=== PATIENT | male | born 1935 | race Caucasian/White ===

== ENCOUNTER → 2016-11-07 | Day surgery (SDC) | payer MEDICARE ==
[~2016-11-07] VITALS: Ht 170.2 cm; Wt 76.5 kg
[~2016-11-07] MED LIST: AMBI5TAB PO; AMLO2.5T PO; AMLO5TAB2 PO; ASPI81CH CHEW; BACITRACIN TOP OINT 15 GM TUBE ONE; BUME1TAB26 PO; BUPIVACAINE HCL PF 0.5% 30 ML VIAL ONE; CALC0.5C6 PO; COLC1CAP3 PO; FE FCAP; GLIP5TAB8 PO; HYDR-3583 PO; ISOS60TA PO; LACTATED RINGER'S 1000 ML INJ 1,000 ML IV SCH; LIDOCAINE HCL 2% 50 ML VIAL ONE; METO10TA PO; METO50TA PO; METOPROLOL TARTRATE 25 MG TAB ONE; NIFE10CA PO; NITR1SUB3 SL; PERI8.6T PO; PROPOFOL 200 MG/20 ML AMP IV ONE; ROSU20 PO; SEVEL800 PO; [UNRECOGNIZED DRUG - OTHER]; ceFAZolin 2 GM PREMIX 50 ML IV SCH
[2016-11-07 14:51] VITALS: BP 125/52; PULSE 108; RESP 16; TEMP 98; O2SAT 97
--- NOTE | 2016-11-07 17:18 | PD.OP ---
Operative Report Preoperative Diagnosis: (1) gangrene right ring finger Postoperative Diagnosis: (1) gangrene right ring finger Procedure: amputation through Proximal interphalangeal joint right ring finger Anesthesia: MAC Surgeon: Devon Curtis Biomedical Analytical Scientist(s): corazon Operation and Findings: gangrene involving right ring finger till the middle/base middle phalanx region Devon Curtis MD Nov 07, 2016 17:18
[2016-11-07 17:35] VITALS: BP 114/64; PULSE 81; RESP 16; TEMP 97.3; O2SAT 100
--- NOTE | 2016-11-08 14:00 | MP ---
cc: DEVON LEVINE MD DATE OF SURGERY: 11/07/2016 PREOPERATIVE DIAGNOSIS Gangrene, right ring finger. POSTOPERATIVE DIAGNOSIS Gangrene, right ring finger. PROCEDURE Amputation through proximal interphalangeal joint, right ring finger. SURGEON Dr. Levine ANESTHESIA [facility] [place]. ESTIMATED BLOOD LOSS Minimal. TOURNIQUET TIME No tourniquet was used. SPECIMEN Specimen was sent to pathology. DISPOSITION To PACU stable. INDICATION The patient is a 81-year-old male with a history of end-stage renal disease, who presented initially with ischemic right ring finger which was initially managed with calcium channel erica and nitro paste. The patient had worsening of symptoms and ended up with gangrene of the right ring finger up to the middle phalanx region. Hence, he was consented for amputation of the right ring finger. The patient was explained the risks and benefits of the procedure including the level of amputation based on intraoperative findings. DETAILS OF PROCEDURE The patient was brought to the operating room. The right upper extremity was thoroughly prepped and draped under MAC anesthesia. A curvilinear incision was marked in a fishmouth pattern on the volar and dorsal aspect at the base of the middle phalanx region as the gangrenous digit was extending up to the middle/base of the middle phalanx. No tourniquet was used. Local anesthesia containing 2% lidocaine and 0.5% Marcaine was injected as a digital block. An incision was then made over the proposed incision site. Initially the dissection was carried out on the volar aspect. Bleeding points were cauterized with the bipolar cautery. The digital nerves were identified and transected proximally. The digital artery was calcified. Not much bleeding from the digital artery was noted. Because of the gangrenous lesion going to the middle and base of the distal phalanx, decision was made to proceed with amputation through the proximal interphalangeal joint. The flexor tendons were identified and was pulled distally and transected proximally. The joint was entered after incising the volar plate. The collateral ligaments were incised over the lateral aspect. A skin incision was then made on the dorsal aspect extending through the extensor tendon and disarticulation was carried out through the proximal interphalangeal joint. Thorough wash was given with normal saline. Initially soft tissue was loosely approximated over the end of the proximal phalanx and the skin and subcutaneous tissue was approximated initially with 4-0 Vicryl interrupted stitches followed by 5-0 nylon in a horizontal mattress interrupted fashion. Had good pinkish color to the flaps. Xeroform and bacitracin dressing was applied. A bulky hand dressing was applied which was held in place by Sof-Rol and bias hand wrap. The patient was recovered and sent to the recovery room in stable condition. He will follow-up in 2-3 days' time for a dressing change. Devon Levine MD SE/QIAN /5:21 PM /1:43 PM MTDAmish
== END | disposition home or self-care (01) ==
LOC: HSDC 13:33
PROVIDERS: ATTEND Surgery Surgery of the Hand
DX: I96 Gangrene, not elsewhere classified (principal); I99.8 Other disorder of circulatory system; I10 Essential (primary) hypertension
CPT/HCPCS: 01830; 26951; 84132; 88305; 88311; J0690; J3010; J7120

== ENCOUNTER 2016-11-10 11:32 | Observation (INO) | payer MEDICARE ==
[~2016-11-10] VITALS: Ht 170.2 cm; Wt 72.0 kg
[2016-11-10] VITALS (8 sets, daily range): BP systolic 82–136; BP diastolic 45–76; PULSE 68–81; RESP 16–20; TEMP 97.4–98.7; O2SAT 92–99
[~2016-11-10 11:32] MED LIST changes: -AMLO2.5T PO; -AMLO5TAB2 PO; -ASPI81CH CHEW; -BACITRACIN TOP OINT 15 GM TUBE ONE; -BUPIVACAINE HCL PF 0.5% 30 ML VIAL ONE; -HYDR-3583 PO; -LACTATED RINGER'S 1000 ML INJ 1,000 ML IV SCH; -LIDOCAINE HCL 2% 50 ML VIAL ONE; -METO10TA PO; -METOPROLOL TARTRATE 25 MG TAB ONE; -PERI8.6T PO; -PROPOFOL 200 MG/20 ML AMP IV ONE; -[UNRECOGNIZED DRUG - OTHER]; -ceFAZolin 2 GM PREMIX 50 ML IV SCH
--- NOTE | 2016-11-10 11:50 | PD ---
HPI Chief Complaint: Injury Time Seen by Provider: 11:44 Travel History International Travel<30 days: No Contact w/Intl Traveler<30days: No Traveled to known affect area: No History of Present Illness HPI 81-year-old male came to the emergency room with his with history of generalized weakness, poor appetite, not drinking enough fluids for past 2 weeks. He had his ring finger office right hand partially amputated 3 days ago. He says he is also been getting pain at the stump of the finger. No history of fever or chills. No history of nausea or vomiting. In triage his blood pressure was 85/52. However once being brought in the room the blood pressure was 135 systolic. Patient has end-stage renal disease and is a peritoneal dialysis patient. He has dialysis done last night. His industrial maintenance instructor is Dr. Dos Santos. Patient is on renal transplant list. He saw the hand surgeon yesterday and had the wound checked. He was told by the hand surgeon that the wound looked good. The is very concerned because he has not been eating or drinking for past 2 weeks and she has mentioned this more than couple times. [facility] Past Medical History Narrative Medical List of his past medical history reviewed from the nursing note. Anemia: Yes Cancer: No Cardiac Catheterization: Yes Cardiovascular Problems: Yes (CABGX4, CARDIAC STENTS X2) High Cholesterol: Yes Chest Pain: Yes Congestive Heart Failure: Yes Coronary Artery Disease: Yes Diabetes: Yes (NIDDM) Diminished Hearing: No Endocrine: Yes Gastrointestinal Disorders: No Genitourinary: No Hepatitis: No Hiatal Hernia: No Hypertension: Yes Immune Disorder: No Musculoskeletal: Yes (GOUT) Neurologic: Yes (NEUROPATHY) Psychiatric: No Reproductive: No Respiratory: Yes (COPD) Immunizations Current: Yes Thyroid Disease: Yes (PARATHYROID DISEASE) Past Surgical History Abdominal Surgery: Yes (CHOLECYSTECTOMY, RIGHT INGUINAL HERNIA REPAIR & UMBILICAL HERNIA REPAIR) AICD: No Body Medical Devices: wires in sternum, PD PORT TO RIGHT ABD, MESH TO ABD, STENTS X2 Cardiac Surgery: Yes (CABG X4) Cholecystectomy: Yes Coronary Artery Bypass Graft: Yes (1992) Coronary Stent: Yes (X3) Ear Surgery: No Endocrine Surgery: No Eye Surgery: No Genitourinary Surgery: No Gynecologic Surgery: No Joint Replacement: No Neurologic Surgery: No (CAROTID SURGERY 2004) Oral Surgery: No Pacemaker: No Thoracic Surgery: No Tonsillectomy: Yes Other Surgery: Yes (hernia) Social History Alcohol Use: No Tobacco Use: No Substance Use: No Allergies-Medications (Allergen,Severity, Reaction): Coded Allergies: Contrast Media (Verified Allergy, Severe, 11/10/16) KIDNEY PRECAUTION Sulfa (Verified Allergy, Intermediate, RASH, 11/10/16) Comments List of her allergies reviewed from the nursing note. Reported Meds & Prescriptions Reported Meds & Active Scripts Active Reported Renvela (Sevelamer Carbonate) 800 Mg Tab 1,600 Mg PO TID Nifedipine 10 Mg Cap 30 Mg PO DAILY Colchicine 0.6 Mg Cap 0.6 Mg PO DAILY Calcitriol 0.5 Mcg Cap 0.5 Mcg PO DAILY Ambien (Zolpidem Tartrate) 5 Mg Tab 5 Mg PO HS PRN Metoprolol Tartrate 50 Mg Tab 50 Mg PO DAILY Crestor (Rosuvastatin Calcium) 20 Mg Tab 20 Mg PO DAILY Nitroglycerin SL (Nitroglycerin) 0.4 Mg Subl 0.4 Mg SL DIRECTED PRN ONE TABLET UNDER THE TONGUE NEEDED FOR CHEST PAIN, MAY REPEAT EVERY FIVE MINUTES FOR A TOTAL OF 3 DOSES OR CALL 911 IF NO RELIEF Isosorbide Mononitrate ER (Isosorbide Mononitrate) 60 Mg Tab 60 Mg PO DAILY Integra (Multi-Vit/Iron-B Comp-Vit C) 62.5-62.5-40-3 mg Cap Glipizide 5 Mg Tab 5 Mg PO DAILY Take 30 minutes before a meal Bumex (Bumetanide) 1 Mg Tab 1 Mg PO DAILY Narrative Medication List of his home medications reviewed from the nursing note. Review of Systems Except as stated in HPI: all other systems reviewed are Neg Physical Exam Narrative GENERAL: Awake, alert, moderate distress SKIN: Warm and dry. Pale HEAD: Atraumatic. Normocephalic. EYES: Pupils equal and round. No scleral icterus. No injection or drainage. Pallor. ENT: No nasal bleeding or discharge. Dry mucous membrane. NECK: Trachea midline. No JVD. CARDIOVASCULAR: Regular rate and rhythm. No murmur appreciated. RESPIRATORY: No accessory muscle use. Clear to auscultation. Breath sounds equal bilaterally. GASTROINTESTINAL: Abdomen soft, non-tender, nondistended. Hepatic and splenic margins not palpable. MUSCULOSKELETAL: No obvious deformities. No clubbing. No cyanosis. No edema. Right hand ring finger partial amputation. Stitches intact. The skin is erythematous and warm on both dorsal and volar aspect. No streaking noticed. NEUROLOGICAL: Awake and alert. No obvious cranial nerve deficits. Motor grossly within normal limits. Normal speech. PSYCHIATRIC: Appropriate mood and affect; insight and judgment normal. Data Data Last Documented VS Vital Signs Date Time Temp Pulse Resp B/P Pulse Ox O2 Delivery O2 Flow Rate FiO2 11/10/16 13:20 76 17 136/63 99 Room Air 11/10/16 11:36 98.1 Orders Electrocardiogram (11/10/16 11:55) Complete Blood Count With Diff (11/10/16 11:55) Comprehensive Metabolic Panel (11/10/16 11:55) Lactic Acid Sepsis Protocol (11/10/16 11:55) Blood Culture (11/10/16 11:55) Chest, Single Ap (11/10/16 11:55) Blood Glucose (11/10/16 11:55) Ecg Monitoring (11/10/16 11:55) Iv Access Insert/Monitor (11/10/16 11:55) Oximetry (11/10/16 11:55) Oxygen Administration (11/10/16 11:55) Piperacil-Tazo 4.5 Gm Premix (Zosyn 4.5 (11/10/16 11:55) Vancomycin Inj (Vancomycin Inj) (11/10/16 11:55) Sodium Chlor 0.9% 1000 Ml Inj (Ns 1000 M (11/10/16 11:55) Sodium Chlor 0.9% 1000 Ml Inj (Ns 1000 M (11/10/16 11:55) Sodium Chlor 0.9% 1000 Ml Inj (Ns 1000 M (11/10/16 11:55) Type And Screen (11/10/16 11:55) Troponin I (11/10/16 11:55) Hand, Complete ([id number]) (11/10/16 ) Westergren Sedimentation Rate (11/10/16 11:55) C-Reactive Protein (Crp) (11/10/16 11:55) ^ Dialysis Permit (11/10/16 13:33) ^ Notify Dr: Other (11/10/16 13:33) ^ Dialysis Catheter Care (11/10/16 13:33) ^ Dialysis Dressing SHERMAN.Q2D (11/10/16 13:33) ^ Dialysis Orders (11/10/16 13:33) Heparin Inj (Heparin Inj) (11/10/16 13:45) Sodium Chloride 0.9% Flush (Ns Flush) (11/10/16 13:45) Epoetin Santiago Inj (Epogen Inj) (11/11/16 09:00) Acetamin-Hydrocod 325-5 Mg ([place] 5-325 (11/10/16 13:45) Admit Order (Ed Use Only) (11/10/16 13:58) Labs Laboratory Tests Test 11/10/16 11/10/16 12:00 12:30 White Blood Count 8.0 TH/MM3 Red Blood Count 2.93 MIL/MM3 Hemoglobin 9.2 GM/DL Hematocrit 27.2 % Mean Corpuscular Volume 93.0 FL Mean Corpuscular Hemoglobin 31.3 PG Mean Corpuscular Hemoglobin 33.7 % Concent Red Cell Distribution Width 14.7 % Platelet Count 253 TH/MM3 Mean Platelet Volume 7.3 FL Neutrophils (%) (Auto) 69.4 % Lymphocytes (%) (Auto) 7.1 % Monocytes (%) (Auto) 13.2 % Eosinophils (%) (Auto) 9.6 % Basophils (%) (Auto) 0.7 % Neutrophils # (Auto) 5.5 TH/MM3 Lymphocytes # (Auto) 0.6 TH/MM3 Monocytes # (Auto) 1.1 TH/MM3 Eosinophils # (Auto) 0.8 TH/MM3 Basophils # (Auto) 0.1 TH/MM3 CBC Comment DIFF FINAL Differential Comment Erythrocyte Sedimentation Rate GREATER THAN 140 mm/hr Sodium Level 136 MEQ/L Potassium Level 4.1 MEQ/L Chloride Level 96 MEQ/L Carbon Dioxide Level 25.4 MEQ/L Anion Gap 15 MEQ/L Blood Urea Nitrogen 57 MG/DL Creatinine 10.11 MG/DL Estimat Glomerular Filtration 5 ML/MIN Rate Random Glucose 183 MG/DL Lactic Acid Level 2.9 mmol/L Calcium Level 9.1 MG/DL Total Bilirubin 0.4 MG/DL Aspartate Amino Transf 22 U/L (AST/SGOT) Alanine Aminotransferase 8 U/L (ALT/SGPT) Alkaline Phosphatase 122 U/L Troponin I 0.05 NG/ML C-Reactive Protein 7.21 MG/DL Total Protein 7.1 GM/DL Albumin 2.5 GM/DL Blood Type A POSITIVE Antibody Screen NEGATIVE MDM Medical Decision Making Medical Screen Exam Complete: Yes Emergency Medical Condition: Yes Medical Record Reviewed: Yes Interpretation(s) Twelve-lead EKG was reviewed by me. Normal sinus rhythm, left axis deviation, old inferior and anterior IL, lateral T wave inversions. Heart rate of 73 bpm. Differential Diagnosis Sepsis, cellulitis, electrolyte abnormalities, dehydration Narrative Course 1:53 PM I discussed the case with his hand surgeon Dr. Quinteros. He wanted me to send a picture of the amputated finger which I did. After looking at it. He let me know that the postop wound did not look any different than yesterday. He did not think that it was the source of infection. However patient was given a dose of vancomycin and Zosyn and 2 L of IV fluid bolus initially due to possible sepsis. His sedimentation rate, CRP lactic acid are elevated. I discussed with Dr. Tatum regarding patient's peritoneal dialysis for tonight since I intend to admit this patient at least for overnight observation. He is covering for patient's industrial maintenance instructor Dr. Dos Santos. Patient's hemoglobin is low but does not require transfusion. Patient told me that he gets Epogen shots and his last one was one week ago. I spoke with the hospitalist who has agreed to admit the patient for observation. Patient knows about this plan. He wanted something for the pain. I have ordered 1 tablet of hydrocodone. Critical Care Narrative Aggregate critical care time was 30 minutes. Time to perform other separately billable procedures was not included in the critical care time. My time did not include minutes spent treating any other patients simultaneously or on activities that did not directly contribute to the patient's treatment. The services I provided to this patient were to treat and/or prevent clinically significant deterioration that could result in: Sepsis protocol, I provided critical care services requiring my management, as noted below: Chart data review, documentation time, medication orders and management, vital sign assessments/reviewing monitor data, ordering and reviewing lab tests, ordering and interpreting/reviewing x-rays and diagnostic studies, care of the patient and discussion of the patient with the admitting physicians. Procedures EKG Prior to Arrival: No Physician Communication Physician Communication Dr. Tatum, Dr. Quinteros Diagnosis Primary Impression: Postoperative wound cellulitis Qualified Code: T81.4XXA - Postoperative wound cellulitis, initial encounter Additional Impressions: Dehydration End stage renal disease Dependence on peritoneal dialysis Status post right inguinal herniorrhaphy Lactic acidosis Admitting Information Admitting Physician Requests: Observation Scripts Sennosides-Docusate Sodium (Analia-Colace)8.6-50 Mg Tab1 Tab PO BID PRN ( Constipation) #60 TAB Ref 0 Prov:Aric Gonzalez MD 11/11/16 Metoclopramide 10 Mg Tab10 Mg PO ACHS #30 TAB Ref 3 Prov:Aric Gonzalez MD 11/11/16 Hydrocodone-Acetaminophen 10-325 mg Tab1 Tab PO Q4H PRN (PAIN 1-5) #20 TAB Prov:Aric Gonzalez MD 11/11/16 Liliane Lehman MD Nov 10, 2016 11:50
[2016-11-10] MEDS ORDERED: SODIUM CHLOR 0.9% 1000 ML INJ 400 ML IV ONE (11:55)
[2016-11-10] MEDS ORDERED: SODIUM CHLOR 0.9% 1000 ML INJ 1,000 ML IV ONE ×2 (11:55)
[2016-11-10] MEDS ORDERED: VANCOMYCIN INJ 1,000 MG in SODIUM CHLOR 0.9% 250 ML INJ 250 ML IV STA (11:55)
[2016-11-10] MEDS ORDERED: PIPERACIL-TAZO 4.5 GM PREMIX 100 ML IV STA (11:55)
[2016-11-10 12:29] LABS: AUTOMATED NEUTROPHIL # 5.5 TH/MM3 (1.8-7.7); BASOPHIL # 0.1 TH/MM3 (0-0.2); BASOPHIL % 0.7 % (0.0-2.0); EOSINOPHIL # 0.8 TH/MM3 (0-0.4); EOSINOPHIL % 9.6 % (0.0-4.0); HEMATOCRIT 27.2 % (39.0-51.0); HEMO FLAGS DIFF FINAL; LYMPH % 7.1 % (9.0-44.0); LYMPHOCYTE # 0.6 TH/MM3 (1.0-4.8); MEAN CORPUSCULAR HEMOGLOBIN 31.3 PG (27.0-34.0); MEAN CORPUSCULAR HGB CONC 33.7 % (32.0-36.0); MONO % 13.2 % (0.0-8.0); NEUT % 69.4 % (16.0-70.0); PLATELET COUNT 253 TH/MM3 (150-450); RED BLOOD COUNT 2.93 MIL/MM3 (4.50-5.90); RED CELL DISTRIBUTION WIDTH 14.7 % (11.6-17.2)
--- NOTE | 2016-11-10 12:42 | RADRPT ---
EXAM DATE/TIME: 11/10/2016 12:08 [facility] COMPARISON: No previous studies available for comparison. INDICATIONS : Cough. MEDICAL HISTORY : HTN. Diabetes. Dyslipidemia. Renal failure. PAD. Heart failure. SURGICAL HISTORY : Bypass sx. Right iliac angioplasty. Right Hand 4th digit Amputation. ENCOUNTER: Initial ACUITY: 1 day PAIN SCORE: 0/10 LOCATION: Bilateral chest FINDINGS: A single view of the chest demonstrates there are numerous sternal wires across the chest post CABG. The lungs are clear. No infiltrate or mass. CONCLUSION: The lungs are clear. No infiltrate or mass. New Farr MD on November 10, 2016 at 12:39 Board Certified Radiologist. This report was verified electronically.
[2016-11-10 12:50] LABS: ALKALINE PHOSPHATASE 122 U/L (45-117); TOTAL BILIRUBIN ADULT 0.4 MG/DL (0.2-1.0)
[2016-11-10 12:55] LABS: ALT (GPT) 8 U/L (12-78); ANION GAP 15 MEQ/L (5-15); BICARBONATE 25.4 MEQ/L (21.0-32.0); BLOOD UREA NITROGEN 57 MG/DL (7-18); CHLORIDE 96 MEQ/L (98-107); GLOMERULAR FILTRATION RATE 5 ML/MIN (>89); SODIUM (NA) 136 MEQ/L (136-145)
[2016-11-10 13:02] LABS: AST (GOT) 22 U/L (15-37); POTASSIUM 4.1 MEQ/L (3.5-5.1)
--- NOTE | 2016-11-10 13:10 | RADRPT ---
EXAM DATE/TIME: 11/10/2016 12:10 [facility] COMPARISON: No previous studies available for comparison. INDICATIONS : Right Hand Pain, 4th digit amputation site, worsening pain since operation. MEDICAL HISTORY : HTN. Diabetes. Dyslipidemia. Renal failure. PAD. Heart failure. Right Hand Fractures. SURGICAL HISTORY : Bypass sx. Right iliac angioplasty. Right Hand 4th digit Amputation. ENCOUNTER: Initial ACUITY: 1 day PAIN SCORE: 7/10 LOCATION: Right Hand. FINDINGS: Post op three view right hand demonstrates the fourth finger has been amputated distally. There is a small erosion from the ulnar aspect of the third middle phalangeal bone. Joint spaces are relatively well preserved. There is n acute fracture. CONCLUSION: Previous surgery as above. No acute fracture is seen. New Farr MD on November 10, 2016 at 12:49 Board Certified Radiologist. This report was verified electronically.
[2016-11-10] MEDS ORDERED: SODIUM CHLORIDE 0.9% FLUSH 5 ML FLUSH IVF PRN (13:45)
[2016-11-10] MEDS ORDERED: ACETAMINOPHEN/HYDROcodone 325 MG/5 MG TAB PO ONE (13:45)
[2016-11-10] MEDS ORDERED: HEPARIN SODIUM - IV 10,000 UNITS/10 ML VIAL XX PRN (13:45)
--- NOTE | 2016-11-10 14:05 | HHI.HP ---
HPI [facility] Primary Care Physician Amish Roque Admission Diagnosis sepsis, cellulitis, ESRD, PD dependent, dehydration Diagnoses: (1) Intractable pain (2) Lactic acidosis (3) Gastroparesis diabeticorum Chief Complaint: Intractable pain to right hand s/p partial amputation of right index finger Travel History International Travel<30 Days: No Contact w/Intl Traveler <30 Da: No Traveled to Known Affected Are: No History of Present Illness 81 year-old male with multiple medical comorbidities including CAD, diabetes type 2, end-stage renal disease on peritoneal dialysis, gangrene of the right index finger status post right ring finger partial amputation presented to the ED for evaluation of intractable postsurgical pain despite prescribed current narcotics without any associated fever or chills. Patient was seen by a hand surgeons yesterday 11/09/16 for checkup and it was deemed normal without any evidence of infected wound. Patient also reported occasional episodes nausea and emesis along with decreased appetite over the past few months. There is no report of bladder or bowel dysfunction. Patient has a history of end-stage renal disease on peritoneal dialysis. Initially when patient presented to the ED he had BP of 85/52 which improved to 135 systolic. Otherwise patient denies any GI bleed Review of Systems Other Other 12 systems reviewed and are negative except for the one mentioned in history of present illness Past Family Social History Past Medical History Gangrene of right index finger CAD Hyperlipidemia Hypertension Diabetes mellitus Chronic kidney disease stage IV CHF Past Surgical History Status post right ring finger partial amputation 11/07/16 Tonsillectomy Right carotid enterectomy CABG Cholecystectomy Reported Medications Renvela (Sevelamer Carbonate) 800 Mg Tab 1,600 Mg PO TID Nifedipine 10 Mg Cap 30 Mg PO DAILY Colchicine 0.6 Mg Cap 0.6 Mg PO DAILY Calcitriol 0.5 Mcg Cap 0.5 Mcg PO DAILY Ambien (Zolpidem Tartrate) 5 Mg Tab 5 Mg PO HS PRN Metoprolol Tartrate 50 Mg Tab 50 Mg PO DAILY Crestor (Rosuvastatin Calcium) 20 Mg Tab 20 Mg PO DAILY Nitroglycerin SL (Nitroglycerin) 0.4 Mg Subl 0.4 Mg SL DIRECTED PRN ONE TABLET UNDER THE TONGUE NEEDED FOR CHEST PAIN, MAY REPEAT EVERY FIVE MINUTES FOR A TOTAL OF 3 DOSES OR CALL 911 IF NO RELIEF Isosorbide Mononitrate ER (Isosorbide Mononitrate) 60 Mg Tab 60 Mg PO DAILY Integra (Multi-Vit/Iron-B Comp-Vit C) 62.5-62.5-40-3 mg Cap Glipizide 5 Mg Tab 5 Mg PO DAILY Take 30 minutes before a meal Bumex (Bumetanide) 1 Mg Tab 1 Mg PO DAILY Allergies: Coded Allergies: Contrast Media (Verified Allergy, Severe, 11/10/16) KIDNEY PRECAUTION Sulfa (Verified Allergy, Intermediate, RASH, 11/10/16) Social History Alcohol Use: No Tobacco Use: No Substance Use: No Physical Exam Vital Signs Vital Signs Date Time Temp Pulse Resp B/P Pulse Ox O2 Delivery O2 Flow Rate FiO2 11/10/16 13:20 76 17 136/63 99 Room Air 11/10/16 12:00 98 Room Air 11/10/16 12:00 18 98 Room Air 11/10/16 11:37 80 89/54 11/10/16 11:37 81 16 82/45 11/10/16 11:36 98.1 80 16 82/53 92 Physical Exam GENERAL: This is a well-nourished, well-developed patient, in no apparent distress. SKIN: No rashes, ecchymoses or lesions. Cool and dry. HEAD: Atraumatic. Normocephalic. No temporal or scalp tenderness. EYES: Pupils equal round and reactive. Extraocular motions intact. No scleral icterus. No injection or drainage. ENT: Nose without bleeding, purulent drainage or septal hematoma. Throat without erythema, tonsillar hypertrophy or exudate. Uvula midline. Airway patent. NECK: Trachea midline. No JVD or lymphadenopathy. Supple, nontender, no meningeal signs. CARDIOVASCULAR: Regular rate and rhythm without murmurs, gallops, or rubs. RESPIRATORY: Clear to auscultation. Breath sounds equal bilaterally. No wheezes , rales, or rhonchi. GASTROINTESTINAL: Abdomen soft, non-tender, nondistended. No hepato-splenomegaly , or palpable masses. No guarding. MUSCULOSKELETAL: Extremities without clubbing, cyanosis, or edema. No joint tenderness, effusion, or edema noted. No calf tenderness. Negative Homans sign bilaterally. Dressing over partial amputated right index finger NEUROLOGICAL: Awake and alert. Cranial nerves II through XII intact. Motor and sensory grossly within normal limits. Five out of 5 muscle strength in all muscle groups. Normal speech. Laboratory Laboratory Tests Test 11/10/16 11/10/16 12:00 12:30 White Blood Count 8.0 Red Blood Count 2.93 Hemoglobin 9.2 Hematocrit 27.2 Mean Corpuscular Volume 93.0 Mean Corpuscular Hemoglobin 31.3 Mean Corpuscular Hemoglobin 33.7 Concent Red Cell Distribution Width 14.7 Platelet Count 253 Mean Platelet Volume 7.3 Neutrophils (%) (Auto) 69.4 Lymphocytes (%) (Auto) 7.1 Monocytes (%) (Auto) 13.2 Eosinophils (%) (Auto) 9.6 Basophils (%) (Auto) 0.7 Neutrophils # (Auto) 5.5 Lymphocytes # (Auto) 0.6 Monocytes # (Auto) 1.1 Eosinophils # (Auto) 0.8 Basophils # (Auto) 0.1 CBC Comment DIFF FINAL Differential Comment Erythrocyte Sedimentation Rate GREATER THAN 140 Sodium Level 136 Potassium Level 4.1 Chloride Level 96 Carbon Dioxide Level 25.4 Anion Gap 15 Blood Urea Nitrogen 57 Creatinine 10.11 Estimat Glomerular Filtration 5 Rate Random Glucose 183 Lactic Acid Level 2.9 Calcium Level 9.1 Total Bilirubin 0.4 Aspartate Amino Transf 22 (AST/SGOT) Alanine Aminotransferase 8 (ALT/SGPT) Alkaline Phosphatase 122 Troponin I 0.05 C-Reactive Protein 7.21 Total Protein 7.1 Albumin 2.5 Blood Type A POSITIVE Antibody Screen NEGATIVE Date/Time Procedure Status Source Growth 11/10/16 12:00 Aerobic Blood Culture Received Blood Peripheral Pending 11/10/16 12:00 Anaerobic Blood Culture Received Blood Peripheral Pending Result Diagram: 11/10/16 1200 11/10/16 1200 Assessment and Plan Problem List: (1) Intractable pain ICD Code: R52 Status: Acute (2) Lactic acidosis ICD Code: E87.2 Status: Acute (3) Gastroparesis diabeticorum ICD Code: E11.43 Status: Acute (4) ESRD (end stage renal disease) on dialysis ICD Code: N18.6 Status: Chronic (5) CAD (coronary artery disease) ICD Code: I25.10 Status: Chronic (6) CHF (congestive heart failure) ICD Code: I50.9 Status: Chronic (7) DM (diabetes mellitus) ICD Code: E11.9 Status: Chronic (8) HTN (hypertension) ICD Code: I10 Status: Chronic Assessment and Plan 81-year-old male with 1-Intractable postoperative pain: Patient is status post right ring partial finger amputation 11/07/16; no evidence of infected wound despite elevated ESR. Consider courtesy consultation to hand surgeon. Continue with pain management and adjust accordingly 2-Gastroparesis diabeticorum: Most likely explaining patient's symptoms of nausea with starts renally dose Reglan 3-Intractable nausea and occasional emesis: Treat as in above with gastroparesis diabeticorum.Consult dietary. caloric count. ADA diet with Glucerna 4-Lactic acidosis: Although patient status post right partial finger amputation secondary to gangrene, this does not appear to be associated with any infectious process therefore will Repeat lactic acid 5-End-stage renal disease on PD: Nephrology has been consulted to resume peritoneal dialysis tonight. Resumed Renvela 6-Diabetes type 2: Secondary to end-stage renal disease, will hold oral hypoglycemic agent and start medium sliding scale insulin with fingerstick blood glucose monitoring. Check hemoglobin A1c 7-History of CAD, CHF, gout disease,PAD, other chronic medical conditions: Resume outpatient medications 8-DVT prophylaxis: Bilateral SCDs Code Status Full code Discussed Condition With Patient, ED physician Problem Qualifiers (1) DM (diabetes mellitus): Aric Gonzalez MD Nov 10, 2016 14:05
[2016-11-10 14:18] LABS: LACTIC ACID GHOST NOT REPORTABLE
[2016-11-10] MEDS ORDERED: DEXTROSE 50% IN WATER 50 ML VIAL(D50) IV PUSH PRN (14:45)
[2016-11-10] MEDS ORDERED: NALOXONE HCL 0.4 MG/ML AMP IV PRN (14:45)
[2016-11-10] MEDS ORDERED: GLUCAGON 1 MG/ML VIAL OTHER PRN (14:45)
[2016-11-10] MEDS ORDERED: SODIUM CHLORIDE 0.9% FLUSH 5 ML FLUSH FLUSH PRN (14:45)
[2016-11-10] MEDS ORDERED: ACETAMINOPHEN/HYDROcodone 325 MG/7.5 MG TAB PO PRN (15:00)
[2016-11-10] MEDS ORDERED: ACETAMINOPHEN 325 MG TAB PO PRN ×2 (15:00)
[2016-11-10] MEDS ORDERED: ONDANSETRON HCL 4 MG/2 ML VIAL IVP PRN (15:00)
[2016-11-10] MEDS ORDERED: ACETAMINOPHEN/HYDROcodone 325 MG/5 MG TAB PO PRN (15:00)
--- NOTE | 2016-11-10 15:07 | PD.CONS ---
HPI Service Nephrology Consult Requested By Dr. 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 It appears he is on 2.5% alternating with 1.5% solution. 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 Reported Medications Reported Meds & Active Scripts Active Reported Renvela (Sevelamer Carbonate) 800 Mg Tab 1,600 Mg PO TID Nifedipine 10 Mg Cap 30 Mg PO DAILY Colchicine 0.6 Mg Cap 0.6 Mg PO DAILY Calcitriol 0.5 Mcg Cap 0.5 Mcg PO DAILY Ambien (Zolpidem Tartrate) 5 Mg Tab 5 Mg PO HS PRN Metoprolol Tartrate 50 Mg Tab 50 Mg PO DAILY Crestor (Rosuvastatin Calcium) 20 Mg Tab 20 Mg PO DAILY Nitroglycerin SL (Nitroglycerin) 0.4 Mg Subl 0.4 Mg SL DIRECTED PRN ONE TABLET UNDER THE TONGUE NEEDED FOR CHEST PAIN, MAY REPEAT EVERY FIVE MINUTES FOR A TOTAL OF 3 DOSES OR CALL 911 IF NO RELIEF Isosorbide Mononitrate ER (Isosorbide Mononitrate) 60 Mg Tab 60 Mg PO DAILY Integra (Multi-Vit/Iron-B Comp-Vit C) 62.5-62.5-40-3 mg Cap Glipizide 5 Mg Tab 5 Mg PO DAILY Take 30 minutes before a meal Bumex (Bumetanide) 1 Mg Tab 1 Mg PO DAILY Active Ordered Medications Current Medications Medications (Trade) Dose Ordered Sig/Be Route Start Time Stop Time Status Last Admin (NS Flush) 10 ml UNSCH PRN IVF 11/10/16 13:45 11/10/16 14:25 (Epogen Inj) 20,000 units ONCE SQ 11/11/16 09:00 11/11/16 09:01 (NS Flush) 2 ml UNSCH PRN FLUSH 11/10/16 14:45 (NS Flush) 2 ml BID FLUSH 11/10/16 21:00 (Tylenol) 650 mg Q4H PRN PO 11/10/16 15:00 (Zofran Inj) 4 mg Q6H PRN IVP 11/10/16 15:00 (Tylenol) 650 mg Q6H PRN PO 11/10/16 15:00 (Lueders 5-325 Mg) 1 tab Q4H PRN PO 11/10/16 15:00 (Lueders 7.5-325 Mg) 1 tab Q4H PRN PO 11/10/16 15:00 (Narcan Inj) 0.4 mg UNSCH PRN IV 11/10/16 14:45 (D50w (Vial) Inj) 25 ml UNSCH PRN IV PUSH 11/10/16 14:45 (Glucagon Inj) 1 mg UNSCH PRN OTHER 11/10/16 14:45 (Bumetanide) 1 mg DAILY PO 11/11/16 09:00 (Colchicine) 0.6 mg DAILY PO 11/11/16 09:00 (Glucotrol) 5 mg DAILY PO 11/11/16 09:00 (Imdur) 60 mg DAILY PO 11/11/16 09:00 (Procardia) 30 mg DAILY PO 11/11/16 09:00 (Renvela) 1,600 mg TID PO 11/10/16 18:00 (Lipitor) 40 mg DAILY PO 11/11/16 09:00 (Reglan) 10 mg ACHS PO 11/10/16 16:00 (Ambien) 5 mg HS PRN PO 11/10/16 16:00 Family History Noncontributory Social History Denies smoking or alcohol Physical Exam Vital Signs Vital Signs Date Time Temp Pulse Resp B/P Pulse Ox O2 Delivery O2 Flow Rate FiO2 11/10/16 14:48 17 11/10/16 13:20 76 17 136/63 99 Room Air 11/10/16 12:00 98 Room Air 11/10/16 12:00 18 98 Room Air 11/10/16 11:37 80 89/54 11/10/16 11:37 81 16 82/45 11/10/16 11:36 98.1 80 16 82/53 92 Physical Exam GENERAL: Well-nourished, well-developed patient. SKIN: Warm and dry. HEAD: Normocephalic. EYES: No scleral icterus. No injection or drainage. NECK: Supple, trachea midline. No JVD or lymphadenopathy. CARDIOVASCULAR: Regular rate and rhythm without murmurs, gallops, or rubs. RESPIRATORY: Breath sounds equal bilaterally. No accessory muscle use. GASTROINTESTINAL: Abdomen soft, non-tender, nondistended. EXTREMITIES: No cyanosis, or edema. Right hand has a bandage on the fourth finger amputation site NEUROLOGICAL: Awake, alert, and oriented x 3. Non-focal. Laboratory Laboratory Tests Test 11/10/16 11/10/16 12:00 12:30 White Blood Count 8.0 Red Blood Count 2.93 Hemoglobin 9.2 Hematocrit 27.2 Mean Corpuscular Volume 93.0 Mean Corpuscular Hemoglobin 31.3 Mean Corpuscular Hemoglobin 33.7 Concent Red Cell Distribution Width 14.7 Platelet Count 253 Mean Platelet Volume 7.3 Neutrophils (%) (Auto) 69.4 Lymphocytes (%) (Auto) 7.1 Monocytes (%) (Auto) 13.2 Eosinophils (%) (Auto) 9.6 Basophils (%) (Auto) 0.7 Neutrophils # (Auto) 5.5 Lymphocytes # (Auto) 0.6 Monocytes # (Auto) 1.1 Eosinophils # (Auto) 0.8 Basophils # (Auto) 0.1 CBC Comment DIFF FINAL Differential Comment Erythrocyte Sedimentation Rate GREATER THAN 140 Sodium Level 136 Potassium Level 4.1 Chloride Level 96 Carbon Dioxide Level 25.4 Anion Gap 15 Blood Urea Nitrogen 57 Creatinine 10.11 Estimat Glomerular Filtration 5 Rate Random Glucose 183 Lactic Acid Level 2.9 Calcium Level 9.1 Total Bilirubin 0.4 Aspartate Amino Transf 22 (AST/SGOT) Alanine Aminotransferase 8 (ALT/SGPT) Alkaline Phosphatase 122 Troponin I 0.05 C-Reactive Protein 7.21 Total Protein 7.1 Albumin 2.5 Blood Type A POSITIVE Antibody Screen NEGATIVE Date/Time Procedure Status Source Growth 11/10/16 12:00 Aerobic Blood Culture Received Blood Peripheral Pending 11/10/16 12:00 Anaerobic Blood Culture Received Blood Peripheral Pending Result Diagram: 11/10/16 1200 11/10/16 1200 Assessment and Plan Problem List: (1) ESRD (end stage renal disease) on dialysis Plan: Patient has been admitted and the I will start the peritoneal dialysis orders has been placed. Continue supportive care and we will monitor his stay while in the hospital, patient follows with Dr. Dos Santos As outpatient (2) Peripheral vascular disease Plan: Status post recent deprivation continue to observe (3) DM (diabetes mellitus) Plan: Continue to monitor blood glucose (4) HTN (hypertension) Plan: Monitor blood pressures Problem Qualifiers (1) DM (diabetes mellitus): Mily Poon MD Nov 10, 2016 15:07
[2016-11-10] MEDS: INSULIN ASPART SUPPLEMENTAL SCALE SQ SCH ×2 (15:53→21:00)
[2016-11-10] MEDS: METOCLOPRAMIDE HCL 10 MG TAB PO SCH ×2 (15:59→21:46)
[2016-11-10] MEDS ORDERED: ZOLPIDEM TARTRATE 5 MG TAB PO PRN (16:00)
[2016-11-10] MEDS: SEVELAMER CARBONATE 800 MG TAB PO SCH (18:03)
[2016-11-10] MEDS ORDERED: MORPHINE SULFATE 4 MG/ML INJ IV PUSH PRN (19:45)
[2016-11-10] MEDS: SODIUM CHLORIDE 0.9% FLUSH 5 ML FLUSH FLUSH SCH (21:47)
[2016-11-10] MEDS: ACETAMINOPHEN/HYDROcodone 325 MG/10 MG TAB PO PRN (21:47)
[2016-11-11 03:25] VITALS: BP 144/70; PULSE 81; RESP 20; TEMP 97.8; O2SAT 95
[2016-11-11] MEDS: ACETAMINOPHEN/HYDROcodone 325 MG/10 MG TAB PO PRN ×2 (03:35→09:39)
[2016-11-11 06:19] LABS: AUTOMATED NEUTROPHIL # 4.1 TH/MM3 (1.8-7.7); BASOPHIL # 0.1 TH/MM3 (0-0.2); BASOPHIL % 1.1 % (0.0-2.0); EOSINOPHIL # 0.8 TH/MM3 (0-0.4); EOSINOPHIL % 12.6 % (0.0-4.0); HEMATOCRIT 25.1 % (39.0-51.0); HEMO FLAGS DIFF FINAL; LYMPH % 7.6 % (9.0-44.0); LYMPHOCYTE # 0.5 TH/MM3 (1.0-4.8); MEAN CELL VOLUME 92.4 FL (80.0-100.0); MEAN CORPUSCULAR HEMOGLOBIN 31.4 PG (27.0-34.0); MONO % 12.7 % (0.0-8.0); PLATELET COUNT 227 TH/MM3 (150-450); RED BLOOD COUNT 2.72 MIL/MM3 (4.50-5.90); RED CELL DISTRIBUTION WIDTH 14.4 % (11.6-17.2); WHITE BLOOD COUNT 6.2 TH/MM3 (4.0-11.0)
[2016-11-11] MEDS: INSULIN ASPART SUPPLEMENTAL SCALE SQ SCH (06:46)
[2016-11-11] MEDS: METOCLOPRAMIDE HCL 10 MG TAB PO SCH (06:46)
[2016-11-11 06:52] LABS: ALKALINE PHOSPHATASE 111 U/L (45-117); ALT (GPT) 9 U/L (12-78); ANION GAP 11 MEQ/L (5-15); AST (GOT) 29 U/L (15-37); BICARBONATE 27.7 MEQ/L (21.0-32.0); BLOOD UREA NITROGEN 52 MG/DL (7-18); CHLORIDE 100 MEQ/L (98-107); GLOMERULAR FILTRATION RATE 6 ML/MIN (>89); POTASSIUM 3.4 MEQ/L (3.5-5.1); SODIUM (NA) 139 MEQ/L (136-145); TOTAL BILIRUBIN ADULT 0.4 MG/DL (0.2-1.0)
[2016-11-11 07:14] VITALS: BP 123/60; PULSE 75; RESP 18; TEMP 98; O2SAT 98
[2016-11-11] MEDS ORDERED: POTASSIUM CHLORIDE 25 MEQ EFFERVESCENT TAB PO ONE (07:45)
[2016-11-11] MEDS ORDERED: glipiZIDE 5 MG TAB PO SCH ×2 (08:00→09:00)
--- NOTE | 2016-11-11 08:07 | HHI.PR ---
Subjective Remarks Follow-up intractable postoperative pain/gastroparesis 11/11/16-patient seen and examined, reports eating three-quarter of dinner last night without any nausea or vomiting. Pain to his right hand was controlled all night long. Currently afebrile. States, ready for discharge sometimes today around 10 AM. States, Hand surgery visited last night and dressing change was done to his right hand Objective Vitals Vital Signs Date Time Temp Pulse Resp B/P Pulse Ox O2 Delivery O2 Flow Rate FiO2 11/11/16 07:14 98.0 75 18 123/60 98 11/11/16 03:25 97.8 81 20 144/70 95 11/10/16 23:45 97.4 81 20 115/56 98 11/10/16 19:24 98.6 77 20 119/60 96 11/10/16 16:00 98.7 80 18 101/51 96 11/10/16 15:00 68 18 122/76 99 Room Air 11/10/16 14:48 17 11/10/16 13:20 76 17 136/63 99 Room Air 11/10/16 12:00 98 Room Air 11/10/16 12:00 18 98 Room Air 11/10/16 11:45 68 17 11/10/16 11:37 80 89/54 11/10/16 11:37 81 16 82/45 11/10/16 11:36 98.1 80 16 82/53 92 Result Diagram: 11/11/16 0523 11/11/16 0523 Imaging Last Impressions Chest X-Ray 11/10/16 1155 Signed Impressions: Service Date/Time: Thursday, November 10, 2016 12:08 - CONCLUSION: The lungs are clear. No infiltrate or mass. New Farr MD Hand X-Ray 11/10/16 0000 Signed Impressions: Service Date/Time: Thursday, November 10, 2016 12:10 - CONCLUSION: Previous surgery as above. No acute fracture is seen. New Farr MD Objective Remarks GENERAL: NAD SKIN: Warm and dry. HEAD: Normocephalic. EYES: No scleral icterus. No injection or drainage. NECK: Supple, trachea midline. No JVD or lymphadenopathy. CARDIOVASCULAR: Regular rate and rhythm without murmurs, gallops, or rubs. RESPIRATORY: Breath sounds equal bilaterally. No accessory muscle use. GASTROINTESTINAL: Abdomen soft, non-tender, nondistended. MUSCULOSKELETAL: No cyanosis, or edema. Right hand in dressing BACK: Nontender without obvious deformity. No CVA tenderness. 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 Hand surgeon paid a courtesy visit to patient's last night and changed the dressing to his hand. Continue with pain management and adjust accordingly 2-Gastroparesis diabeticorum: Continue with Reglan 3-Intractable nausea and occasional emesis: Treat as in above with gastroparesis diabeticorum.Consult dietary. caloric count. ADA diet with Glucerna 4-Lactic acidosis: Resolved 5-End-stage renal disease on PD: Nephrology has been consulted and had peritoneal dialysis completed this a.m. Continue Renvela 6-Diabetes type 2: Secondary to end-stage renal disease, Resume oral hypoglycemic agent and continue medium sliding scale insulin with fingerstick blood glucose monitoring. hemoglobin A1c pending 7-History of CAD, CHF, gout disease,PAD, other chronic medical conditions: continue outpatient medications 8-DVT prophylaxis: Bilateral SCDs Discharge Planning Discharge patient to home Condition on discharge: Improved ADA Diet as tolerated Ad Francine activity Rx written:Reglan 10mg Follow-up with primary care physician in 1 week Problem Qualifiers (1) DM (diabetes mellitus): Aric Gonzalez MD Nov 11, 2016 08:07
[2016-11-11] MEDS ORDERED: PERI8.6T PO (08:10)
[2016-11-11] MEDS ORDERED: HYDR-3583 PO (08:10)
[2016-11-11] MEDS ORDERED: METO10TA PO (08:10)
[2016-11-11] MEDS ORDERED: COLCHICINE 0.6 MG TAB PO SCH (09:00)
[2016-11-11] MEDS ORDERED: ISOSORBIDE MONONITRATE 60 MG TAB PO SCH (09:00)
[2016-11-11] MEDS ORDERED: EPOETIN ALFA 20,000 UNITS/ML VIAL SQ SCH (09:00)
[2016-11-11] MEDS ORDERED: ATORVASTATIN 40 MG TAB PO SCH (09:00)
[2016-11-11] MEDS ORDERED: NIFEdipine 10 MG CAP PO SCH (09:00)
[2016-11-11] MEDS ORDERED: BUMETANIDE 1 MG TAB PO SCH (09:00)
[2016-11-11] MEDS: SEVELAMER CARBONATE 800 MG TAB PO SCH (09:01)
[2016-11-11] MEDS: SODIUM CHLORIDE 0.9% FLUSH 5 ML FLUSH FLUSH SCH (09:38)
[2016-11-11] MEDS ORDERED: METOCLOPRAMIDE HCL 10 MG TAB PO SCH (11:00)
[2016-11-11] MEDS ORDERED: PILL SPLITTER OTHER PRN (11:00)
--- NOTE | 2016-11-11 19:42 | EKG ---
Date Performed: 11/10/2016 Time Performed: 12:44:49 PTAGE: 81 years EKG: Sinus rhythm MODERATE T-WAVE ABNORMALITY, CONSIDER LATERAL ISCHEMIA ABNORMAL ECG PREVIOUS TRACING : 11/10/2016 12.43 DOCTOR: Kp Banda Interpretating Date/Time 11/11/2016 19:36:26
== END 2016-11-11 11:13 | disposition home or self-care (01) ==
LOC: NEPE 11:32 → NEDA 13:59 → NEPHCDU 16:39
PROVIDERS: ADMIT Hospitalist; ATTEND Hospitalist
DX: L03.90 Cellulitis, unspecified (principal); T81.4XXA Infection following a procedure, initial encounter; I73.9 Peripheral vascular disease, unspecified; E87.2 Acidosis; I12.0 Hypertensive chronic kidney disease with stage 5 chronic kidney disease or end stage renal disease; N18.6 End stage renal disease; I50.9 Heart failure, unspecified; A41.9 Sepsis, unspecified organism; E86.0 Dehydration; E78.5 Hyperlipidemia, unspecified; E11.43 Type 2 diabetes mellitus with diabetic autonomic (poly)neuropathy; K31.84 Gastroparesis; M10.9 Gout, unspecified; Y83.8 Other surgical procedures as the cause of abnormal reaction of the patient, or of later complication, without mention of misadventure at the time of the procedure; I25.10 Atherosclerotic heart disease of native coronary artery without angina pectoris; E78.00 Pure hypercholesterolemia, unspecified; J44.9 Chronic obstructive pulmonary disease, unspecified; Z76.82 Awaiting organ transplant status; Z95.1 Presence of aortocoronary bypass graft; Z95.5 Presence of coronary angioplasty implant and graft; Z99.2 Dependence on renal dialysis
CPT/HCPCS: 71010; 73130; 80053; 82948; 83605; 84484; 85025; 85652; 86140; 86850; 86900; 86901; 87040; 93005; 96361; 96365; 96368; 97163; 99291; G0257; G0378; G8987; G8988; J2543; J3370; J7030; J7050; 90945; J2270

== ENCOUNTER 2016-11-15 15:19 | Inpatient (IN) | payer MEDICARE ==
[~2016-11-15] VITALS: Ht 170.2 cm; Wt 74.2 kg
[~2016-11-15 15:19] MED LIST changes: +HYDR-3583 PO; +METO10TA PO; +PERI8.6T PO
[2016-11-15] MEDS ORDERED: DEXTROSE 50% IN WATER 50 ML VIAL(D50) IV PUSH PRN (16:00)
[2016-11-15] MEDS ORDERED: GLUCAGON 1 MG/ML VIAL OTHER PRN (16:00)
[2016-11-15 16:30] VITALS: BP 105/51; PULSE 89; RESP 20; TEMP 99.4; O2SAT 93
[2016-11-15] MEDS: INSULIN ASPART SUPPLEMENTAL SCALE SQ SCH ×2 (16:41→21:00)
--- NOTE | 2016-11-15 18:11 | HHI.PR ---
Objective Objective Results - Vital Signs Date Time Temp Pulse Resp B/P Pulse Ox O2 Delivery O2 Flow Rate FiO2 11/15/16 16:30 99.4 89 20 105/51 93 Physical Exam Physical Exam pt is seen & Examined d/w PT & his d/w wilian d/w Dr tapia see orders see H&P will f/u Jamie Beyer MD Nov 15, 2016 18:11
[2016-11-15] MEDS ORDERED: DOCUSATE SODIUM 50 MG/SENNA 8.6 MG TAB PO PRN (18:15)
[2016-11-15 18:52] LABS: AUTOMATED NEUTROPHIL # 5.9 TH/MM3 (1.8-7.7); BASOPHIL # 0.1 TH/MM3 (0-0.2); BASOPHIL % 0.9 % (0.0-2.0); EOSINOPHIL # 0.3 TH/MM3 (0-0.4); EOSINOPHIL % 3.4 % (0.0-4.0); HEMATOCRIT 22.5 % (39.0-51.0); HEMO FLAGS DIFF FINAL; LYMPH % 5.5 % (9.0-44.0); LYMPHOCYTE # 0.4 TH/MM3 (1.0-4.8); MEAN CELL VOLUME 94.1 FL (80.0-100.0); MEAN CORPUSCULAR HEMOGLOBIN 31.8 PG (27.0-34.0); MEAN CORPUSCULAR HGB CONC 33.8 % (32.0-36.0); MONO % 9.7 % (0.0-8.0); NEUT % 80.5 % (16.0-70.0); PLATELET COUNT 189 TH/MM3 (150-450); RED BLOOD COUNT 2.39 MIL/MM3 (4.50-5.90); RED CELL DISTRIBUTION WIDTH 15.2 % (11.6-17.2); WHITE BLOOD COUNT 7.3 TH/MM3 (4.0-11.0)
[2016-11-15 18:56] LABS: INTERNATIONAL NORMALIZED RATIO 1.1 RATIO; PROTHROMBIN TIME - PATIENT 12.3 SEC (9.8-11.6)
[2016-11-15 19:15] LABS: ALKALINE PHOSPHATASE 139 U/L (45-117); ALT (GPT) 11 U/L (12-78); ANION GAP 15 MEQ/L (5-15); AST (GOT) 38 U/L (15-37); BLOOD UREA NITROGEN 59 MG/DL (7-18); CHLORIDE 95 MEQ/L (98-107); GLOMERULAR FILTRATION RATE 6 ML/MIN (>89); POTASSIUM 3.3 MEQ/L (3.5-5.1); SODIUM (NA) 136 MEQ/L (136-145); TOTAL BILIRUBIN ADULT 0.4 MG/DL (0.2-1.0)
[2016-11-15 20:00] VITALS: BP 105/50; PULSE 92; RESP 20; TEMP 99.5; O2SAT 94
[2016-11-15] MEDS: METOCLOPRAMIDE HCL 10 MG TAB PO SCH (21:10)
[2016-11-15] MEDS: ZOLPIDEM TARTRATE 5 MG TAB PO PRN (21:15)
[2016-11-15] MEDS: ACETAMINOPHEN/HYDROcodone 325 MG/10 MG TAB PO PRN (21:18)
[2016-11-16] VITALS (9 sets, daily range): BP systolic 82–126; BP diastolic 40–58; PULSE 64–82; RESP 14–18; TEMP 97.8–99.5; O2SAT 93–95
[2016-11-16] MEDS: METOCLOPRAMIDE HCL 10 MG TAB PO SCH ×4 (05:23→20:35)
[2016-11-16] MEDS: INSULIN ASPART SUPPLEMENTAL SCALE SQ SCH ×4 (05:25→22:12)
[2016-11-16] MEDS: ACETAMINOPHEN/HYDROcodone 325 MG/10 MG TAB PO PRN (05:31)
[2016-11-16] MEDS: COLCHICINE 0.6 MG TAB PO SCH (08:43)
[2016-11-16] MEDS: glipiZIDE 5 MG TAB PO SCH (08:43)
[2016-11-16] MEDS: SEVELAMER CARBONATE 800 MG TAB PO SCH ×4 (08:43→16:56)
[2016-11-16] MEDS: ISOSORBIDE MONONITRATE 60 MG TAB PO SCH (08:43)
[2016-11-16] MEDS: ATORVASTATIN 40 MG TAB PO SCH (08:43)
[2016-11-16] MEDS: METOPROLOL TARTRATE 50 MG TAB PO SCH (08:43)
[2016-11-16] MEDS: CALCITRIOL 0.25 MCG CAP PO SCH (08:43)
[2016-11-16] MEDS ORDERED: NIFEdipine 10 MG CAP PO SCH (09:00)
[2016-11-16] MEDS ORDERED: HEPARIN SODIUM - IV 10,000 UNITS/10 ML VIAL XX PRN (09:30)
[2016-11-16] MEDS ORDERED: SODIUM CHLORIDE 0.9% FLUSH 5 ML FLUSH IVF PRN (09:30)
[2016-11-16] MEDS ORDERED: diphenhydrAMINE HCL 25 MG CAP PO PRN (11:30)
[2016-11-16] MEDS ORDERED: ACETAMINOPHEN 325 MG TAB PO PRN (11:30)
[2016-11-16] MEDS ORDERED: SODIUM CHLOR 0.9% 250 ML INJ 250 ML IV ONE ×2 (11:30→13:30)
--- NOTE | 2016-11-16 14:19 | HHI.PR ---
Subjective History of Present Illness feels weak/ tired No appetite , No more N/V No abd pain BP running low no fever or chills R hand /finger pain is ok left foot is painful offers no other c/o sig other at bedside Vitals/Results Intake & Output 11/15/16 11/15/16 11/16/16 15:00 23:00 07:00 Intake Total 240 ml 240 ml Balance 240 ml 240 ml Intake Oral 240 ml 240 ml IV Total 0 ml 0 ml # Voids 1 0 # Bowel Movements 0 1 Vital Signs Vital Signs Date Time Temp Pulse Resp B/P Pulse Ox O2 Delivery O2 Flow Rate FiO2 11/16/16 12:00 98.1 64 14 82/41 93 98/48 11/16/16 08:00 98.3 70 18 111/52 94 11/16/16 00:00 99.5 82 18 106/53 94 11/15/16 20:00 99.5 92 20 105/50 94 11/15/16 16:30 99.4 89 20 105/51 93 CBC/BMP: 11/15/16 1825 11/15/16 1815 Lab Results Laboratory Tests Test 11/15/16 11/15/16 11/16/16 18:15 18:25 12:40 Prothrombin Time 12.3 SEC Prothromb Time International 1.1 RATIO Ratio Sodium Level 136 MEQ/L Potassium Level 3.3 MEQ/L Chloride Level 95 MEQ/L Carbon Dioxide Level 26.0 MEQ/L Anion Gap 15 MEQ/L Blood Urea Nitrogen 59 MG/DL Creatinine 9.15 MG/DL Estimat Glomerular Filtration 6 ML/MIN Rate Random Glucose 173 MG/DL Calcium Level 8.1 MG/DL Total Bilirubin 0.4 MG/DL Aspartate Amino Transf 38 U/L (AST/SGOT) Alanine Aminotransferase 11 U/L (ALT/SGPT) Alkaline Phosphatase 139 U/L Total Protein 6.6 GM/DL Albumin 2.2 GM/DL White Blood Count 7.3 TH/MM3 Red Blood Count 2.39 MIL/MM3 Hemoglobin 7.6 GM/DL Hematocrit 22.5 % Mean Corpuscular Volume 94.1 FL Mean Corpuscular Hemoglobin 31.8 PG Mean Corpuscular Hemoglobin 33.8 % Concent Red Cell Distribution Width 15.2 % Platelet Count 189 TH/MM3 Mean Platelet Volume 7.4 FL Neutrophils (%) (Auto) 80.5 % Lymphocytes (%) (Auto) 5.5 % Monocytes (%) (Auto) 9.7 % Eosinophils (%) (Auto) 3.4 % Basophils (%) (Auto) 0.9 % Neutrophils # (Auto) 5.9 TH/MM3 Lymphocytes # (Auto) 0.4 TH/MM3 Monocytes # (Auto) 0.7 TH/MM3 Eosinophils # (Auto) 0.3 TH/MM3 Basophils # (Auto) 0.1 TH/MM3 CBC Comment DIFF FINAL Differential Comment Blood Type A POSITIVE Physical Exam General General Appearance: Comfortable, Pale, Malnourished Eyes Eye Exam: Sclera White, Extraocular Movement Intact Ears & Nose Ears & Nose Exam: Nasal Mucosa [place] Throat Throat Exam: Oral Mucosa [place] & Moist Neck Neck Exam: Neck Supple, Trachea Midline Pulmonary Resp Exam: Clear Bilaterally, Breath Sounds Equal Cardiology CV Exam: Regular, Normal Sinus Rhythm Gastrointestinal/Abdomen GI Exam: Soft, Non-Tender, Bowel Sounds Present Musculoskeletal MS Remarks L foot cool to touch , DP pulse not palpable R ring finger amputated / incision is healing Integumentary Skin Exam: Warm, Dry Extremeties Extremities Exam: No Edema Neurologic Neuro Exam: Alert, Awake, Oriented, Speech Clear, Moving All Extremities Psychiatric Psych Exam: Appropriate Responses VTE Prophylaxis VTE Prophylaxis Meds: Heparin PUD Prophylasis PUD Prophylaxis: Protonix Assessment/Plan Assessment/Plan ASSESSMENT Anorexia/weakness /weight loss ?? etiology r/o occult GI pathology r/o occult malignancy r/o ch intestinal ischemia Left lower ext pain 3 to 4 days d/t Ischemia Anemia , acute on ch , likely d/t ESRD s/p recent amputation R rig finger DM HTN HLP CAD s/p CABG w Known Graft occlusive disease TRE s/p R carotid A Endarterectomy ESRD on PD PLAN Hold BP for SBP <105 cautious IV hydration transfuse 1 Unit PRBC check Iron studies check occult stool test obtain GI consult , may need EGD PPI cont reglan encourage po intake add supplement / Nepro \ PD per renal cont ASA/ statin diabetic diet Glipizide accu checks qc & qhs sq heparin d/w PT & her sig other/friend at bedside in detail/answered all of her questions I also called pt's daughter, Giulia, , LM-AM. keep Left foot warm apply inch Nitropaste Left foot Dr tapia aware of this patient am labs will f/u Anwer,Muhammed N MD Nov 16, 2016 14:19
[2016-11-16] MEDS: SODIUM CHLOR 0.9% 1000 ML INJ 1,000 ML IV SCH (14:27)
[2016-11-16] MEDS: NITROGLYCERIN 2% OINT 1 GM PACKET TOPICAL SCH ×2 (15:20→16:56)
[2016-11-16] MEDS: HEPARIN SODIUM - SQ 10,000 UNITS/ML VIAL SQ SCH ×2 (15:24→20:35)
[2016-11-16] MEDS ORDERED: POTASSIUM CL 40 MEQ/30 ML LIQ UDC PO ONE (15:30)
[2016-11-16 15:48] LABS: REVIEW FLAG FINAL
[2016-11-16 17:26] LABS: FERRITIN 1023 NG/ML (26-388); TRANSFERRIN IRON PROFILE 146 MG/DL (200-360)
--- NOTE | 2016-11-16 19:56 | MB ---
cc: BASILIA BILLY MD DATE OF CONSULTATION: 11/16/2016. REASON FOR CONSULTATION: End-stage renal disease management. HISTORY OF PRESENT ILLNESS: This is a 81-year-old male with a history of end-stage renal disease. He is on peritoneal dialysis and is followed up as an outpatient with Dr. Dos Santos. The patient follows up with Dr. Murphy for his vascular issues. He had a recent left ring finger amputation on November 07. The patient was following up apparently with Dr. Murphy yesterday and the patient reports he was sent for admission due to worsening toe ischemia at his left toe. The patient was admitted here and his medications are being continued. Apparently the plan is for an arteriogram and possible intervention with Dr. Murphy to be performed on Friday. At this time, the patient is resting comfortably in bed with no apparent distress. Peritoneal dialysis was initiated last night. Nephrology was consulted for further evaluation and treatment of peritoneal dialysis. REVIEW OF SYSTEMS: The patient reports having generalized fatigue, decreased appetite. No nausea or vomiting, otherwise. No chest pains. No shortness of breath. No diarrhea. No constipation. No dysuria. The patient has pain at his left great toe. He has ongoing pain in his right hand and fingers with previous ring finger amputation. Otherwise the review of systems is negative. PAST MEDICAL HISTORY: His medical history includes: 1. Peripheral arterial disease. 2. Recent amputation of right ring finger. 3. Anemia. 4. Diabetes. 5. Hypertension. 6. Dyslipidemia. 7. Coronary artery disease status post CABG with apparent graft occlusive disease. 8. Coronary artery stenosis with right carotid endarterectomy in the past. 9. End-stage renal disease on peritoneal dialysis followed by Dr. Dos Santos. FAMILY HISTORY: Noncontributory. SOCIAL HISTORY: No alcohol, tobacco or drug use noted. PHYSICAL EXAMINATION: VITAL SIGNS: At the time of evaluation, temperature 98.1, pulse 64, respiratory rate 14, blood pressure 98/48 with pulse oximetry of 93% on room air. GENERAL: Awake, lethargic and in no apparent distress. HEAD, EYES, EARS, NOSE, THROAT: Neck soft supple. CARDIAC: Regular rate and rhythm. PULMONARY: Lungs clear to auscultation. ABDOMEN: The abdomen is soft, nontender and nondistended. EXTREMITIES: No edema. The patient has right hand bandages with recent right ring finger amputation. Patient with ischemic changes of left great toe with stasis dermatitis changes as well. LABORATORY FINDINGS: White count 7.3, hemoglobin 7.6, hematocrit 22.5 with platelet count 189,000. Sodium 136, potassium 2.3, chloride 95, bicarb 26, BUN 59, creatinine 9.1, glucose of 173. ASSESSMENT AND PLAN: 1. End-stage renal disease. The patient is on peritoneal dialysis apparently with 2.5% solution alternating with 1.5% solution with apparent 3 liter fill and 9 liter total. Peritoneal dialysis was initiated last night and will continue with peritoneal dialysis while the patient is here. We will replace his potassium. His potassium is slightly low at 3.3 and will give p.o. potassium. Otherwise electrolytes and volume status are stable. Continue to closely monitor. 2. Peripheral arterial disease. The patient with signs of ischemic changes to the left greater foot. The patient is to follow with Dr. Murphy here and the plan is for arteriogram with possible intervention. Continue to follow up and continue to monitor. 3. Anemia. Patient with a hemoglobin of 7.6. He likely has anemia due to chronic kidney disease. The plan is for a transfusion. Continue to monitor hemoglobin and continue to follow. 4. Left ring finger amputation. The patient's previous left ring finger amputation on November 07 his wounds are apparently clean. Continue to monitor at this point and follow up with surgery. 5. Diabetes. Glucose is stable at 173. Continue to monitor. 6. Hypertension. The patient's blood pressure is actually borderline low. Continue to monitor at this point and hold blood pressure medications for systolic less than 100. MD CAROLYNE Betancourt/THEA /3:23 PM /7:38 PM PATY
--- NOTE | 2016-11-16 23:12 | MB ---
cc: INDER REHMAN MD, HASSAN M.D. ANWER, MUHAMMED N. MD DATE OF CONSULTATION 11/16/[address] Bebo Rehman REASON FOR CONSULTATION Anemia, weight loss. HISTORY OF PRESENT ILLNESS Mr. Deutsch is a 81-year-old gentleman who has end-stage renal disease, is on peritoneal dialysis, basically presented with ischemic foot. This has been treated. GI service has been consulted for decreased appetite with some weight loss and anemia. He denies any GI bleeding. He reports EGD, colonoscopy about 3 years ago and he says this was a normal exam. His significant other has the procedure reports at home which she will obtain for me. REVIEW OF SYSTEMS The review of systems currently no active bleeding reported. No abdominal pain. PAST MEDICAL HISTORY Gangrene of right index finger. Coronary artery disease, hyperlipidemia, hypertension, diabetes, chronic kidney disease, CHF. PAST SURGICAL HISTORY Status post right finger partial amputation, tonsillectomy, right carotid endarterectomy, CABG, cholecystectomy. MEDICATIONS On admission: 1. Nifedipine. 2. Colchicine. 3. Calcitriol. 4. Ambien. 5. Metoprolol. 6. Crestor. 7. Nitroglycerin. 8. Isosorbide. 9. ____. 10. Glipizide. 11. Bumex. ALLERGIES CONTRAST, SULFA DRUGS. SOCIAL HISTORY No tobacco, no alcohol reported. PHYSICAL EXAMINATION GENERAL: Physical examination reveals a well-nourished, well developed patient in no apparent distress. HEAD AND NECK EXAMINATION: Anicteric sclerae. CHEST: Bilateral air entry with rales. ABDOMEN: Abdomen is soft, nontender. No hepatosplenomegaly. Bowel sounds are present. SHIP CLEANER: Exam is nonfocal. RECTAL: Exam deferred at this time. LABORATORY DATA Labs reveal hemoglobin of 7.6, creatinine 9.1I, iron of 55. IMPRESSION Anemia, anorexia, weight loss. RECOMMENDATIONS Previous endoscopy report is requested from the family. EGD, colonoscopy discussed with him. At this time he is only willing to do an endoscopy. This will be scheduled for Friday. Continue diet as tolerated. Continue to monitor labs. Will follow with you. Thank you for this referral. MD HARRIET Higgins/JULIANNE /6:43 PM /11:00 PM
[2016-11-17] VITALS: BP 130/62; PULSE 78; RESP 20; TEMP 98; O2SAT 97
[2016-11-17] MEDS: ACETAMINOPHEN/HYDROcodone 325 MG/10 MG TAB PO PRN ×5 (00:22→22:27)
[2016-11-17] MEDS: NITROGLYCERIN 2% OINT 1 GM PACKET TOPICAL SCH ×5 (00:22→23:53)
[2016-11-17] MEDS: ZOLPIDEM TARTRATE 5 MG TAB PO PRN ×2 (00:22→22:27)
[2016-11-17] MEDS: HEPARIN SODIUM - SQ 10,000 UNITS/ML VIAL SQ SCH ×3 (05:14→22:28)
[2016-11-17] MEDS: METOCLOPRAMIDE HCL 10 MG TAB PO SCH ×4 (05:14→22:27)
[2016-11-17] MEDS: INSULIN ASPART SUPPLEMENTAL SCALE SQ SCH ×4 (05:17→21:00)
[2016-11-17 05:19] LABS: HEMATOCRIT 28.1 % (39.0-51.0); MEAN CELL VOLUME 88.6 FL (80.0-100.0); MEAN CORPUSCULAR HGB CONC 33.8 % (32.0-36.0); PLATELET COUNT 195 TH/MM3 (150-450); RED BLOOD COUNT 3.18 MIL/MM3 (4.50-5.90); RED CELL DISTRIBUTION WIDTH 18.4 % (11.6-17.2); REVIEW FLAG FINAL; WHITE BLOOD COUNT 8.9 TH/MM3 (4.0-11.0)
[2016-11-17 05:45] LABS: BICARBONATE 26.8 MEQ/L (21.0-32.0); POTASSIUM 3.2 MEQ/L (3.5-5.1)
[2016-11-17 05:47] LABS: HDL CHOLESTEROL 28.8 MG/DL (40.0-60.0)
[2016-11-17 08:00] VITALS: BP 109/57; PULSE 73; RESP 19; TEMP 96.9; O2SAT 95
[2016-11-17] MEDS: METOPROLOL TARTRATE 50 MG TAB PO SCH (09:00)
[2016-11-17] MEDS: CALCITRIOL 0.25 MCG CAP PO SCH (09:21)
[2016-11-17] MEDS: COLCHICINE 0.6 MG TAB PO SCH (09:21)
[2016-11-17] MEDS: ATORVASTATIN 40 MG TAB PO SCH (09:21)
[2016-11-17] MEDS: ISOSORBIDE MONONITRATE 60 MG TAB PO SCH (09:21)
[2016-11-17] MEDS: glipiZIDE 5 MG TAB PO SCH (09:21)
[2016-11-17] MEDS: SEVELAMER CARBONATE 800 MG TAB PO SCH ×3 (09:22→17:44)
[2016-11-17 12:00] VITALS: BP 107/63; PULSE 77; RESP 18; TEMP 97.3; O2SAT 95
[2016-11-17] MEDS: SODIUM CHLOR 0.9% 1000 ML INJ 1,000 ML IV SCH (12:41)
--- NOTE | 2016-11-17 14:14 | HHI.PR ---
Subjective History of Present Illness feels weak/ tiredness slightly improved No appetite , No more N/V No abd pain BP running low day before, but WNL after transfution no fever or chills R hand /finger pain is ok left foot is painful, otherwise no other acute pain offers no other c/o family, daughter at bedside Hospital Day: 2 Subjective Remarks I'm feeling better today. (Rita Yoder) Review of Systems Constitutional Constitutional: Weakness Constitutional Remarks 10 point ROS done with positives listed. Otherwise negative or unremarkable exam. (Rita Yoder) Musculoskeletal MS: Weakness, Discomfort/Pain MS Remarks left toe and lt. foot ischemia. Cool, no pulses. small gauze on with sock. ( Rita Yoder) Integumentary Skin: Wounds Skin Remarks left foot great toe (Rita Yoder) Vitals/Results Intake & Output 11/16/16 11/16/16 11/17/16 15:00 23:00 07:00 Intake Total 730 ml 280 ml 180 ml Output Total 961 ml 150 ml 600 ml Balance -231 ml 130 ml -420 ml Intake Oral 480 ml 280 ml 180 ml IV Total 250 ml Output Urine Total 0 ml 150 ml 600 ml Stool Total 0 ml 0 ml Peritoneal Fluid 961 ml # Bowel Movements 0 Vital Signs Vital Signs Date Time Temp Pulse Resp B/P Pulse Ox O2 Delivery O2 Flow Rate FiO2 11/17/16 12:00 97.3 77 18 107/63 95 11/17/16 08:00 96.9 73 19 109/57 95 11/17/16 01:22 16 11/17/16 00:00 98.0 78 20 130/62 97 11/16/16 20:10 98.8 80 18 126/58 95 11/16/16 20:00 98.8 80 18 126/58 95 11/16/16 17:00 97.8 76 14 94/44 93 11/16/16 16:45 97.8 78 18 97/46 94 11/16/16 16:00 97.8 78 18 97/46 94 11/16/16 14:30 98.9 72 18 93/40 95 (Rita Yoder) CBC/BMP: 11/17/16 0452 11/17/16 0452 Lab Results Laboratory Tests Test 11/16/16 11/17/16 16:00 04:52 Blood Type A POSITIVE Crossmatch Leukocyte-Reduced Red Blood Cells Blood Bank Comment White Blood Count 8.9 TH/MM3 Red Blood Count 3.18 MIL/MM3 Hemoglobin 9.5 GM/DL Hematocrit 28.1 % Mean Corpuscular Volume 88.6 FL Mean Corpuscular Hemoglobin 30.0 PG Mean Corpuscular Hemoglobin 33.8 % Concent Red Cell Distribution Width 18.4 % Platelet Count 195 TH/MM3 Mean Platelet Volume 7.5 FL Sodium Level 137 MEQ/L Potassium Level 3.2 MEQ/L Chloride Level 97 MEQ/L Carbon Dioxide Level 26.8 MEQ/L Anion Gap 13 MEQ/L Blood Urea Nitrogen 53 MG/DL Creatinine 8.18 MG/DL Estimat Glomerular Filtration 6 ML/MIN Rate Random Glucose 119 MG/DL Calcium Level 8.1 MG/DL Triglycerides Level 134 MG/DL Cholesterol Level 69 MG/DL LDL Cholesterol 13 MG/DL HDL Cholesterol 28.8 MG/DL Cholesterol/HDL Ratio 2.39 RATIO Current Medications Active Medications Heparin Sodium (Porcine) (Heparin Inj) 5,000 units Q8HR SQ Last administered on 11/17/16 12:40; Admin Dose 5,000 UNITS; Start 11/16/16 at 14:30 Metoclopramide HCl (Reglan) 5 mg ACHS PO Last administered on 11/17/16 12:38; Admin Dose 5 MG; Start 11/16/16 at 16:00 Nitroglycerin (Nitroglycerin 2% Oint) 1 inch Q6HR TOPICAL Last administered on 12:40; Admin Dose 1 INCH; Start 11/16/16 at 14:30 Potassium Chloride (KCl 40 Meq/30 ml Liq) 40 meq ONCE ONCE PO Last administered on 11/16/16 16:55; Admin Dose 40 MEQ; Start 11/16/16 at 15:30; Stop 11/16/16 at 15:42; Status DC (Rita Yoder) Physical Exam General General Appearance: Comfortable, Pale, Malnourished (Rita Yoder) Eyes Eye Exam: Sclera White, Extraocular Movement Intact (Rita Yoder) Ears & Nose Ears & Nose Exam: Nasal Mucosa [place] (Rita Yoder. RESEARCH SOIL SCIENTIST) Throat Throat Exam: Oral Mucosa [place] & Moist (Rita Yoder. RESEARCH SOIL SCIENTIST) Neck Neck Exam: Neck Supple, Trachea Midline (Rita Yoder M. RESEARCH SOIL SCIENTIST) Pulmonary Resp Exam: Clear Bilaterally, Breath Sounds Equal (Rita Yoder M. RESEARCH SOIL SCIENTIST) Cardiology CV Exam: Regular, Normal Sinus Rhythm (Rita Yoder. RESEARCH SOIL SCIENTIST) Gastrointestinal/Abdomen GI Exam: Soft, Non-Tender, Bowel Sounds Present (Rita Yoder. RESEARCH SOIL SCIENTIST) Integumentary Skin Exam: Warm, Dry (Rita Yoder. RESEARCH SOIL SCIENTIST) Extremeties Extremities Exam: No Edema (Rita Yoder. RESEARCH SOIL SCIENTIST) Neurologic Neuro Exam: Alert, Awake, Oriented, Speech Clear, Moving All Extremities ( Rita Yoder M. RESEARCH SOIL SCIENTIST) Psychiatric Psych Exam: Appropriate Responses (Rita Yoder. RESEARCH SOIL SCIENTIST) VTE Prophylaxis VTE Prophylaxis Meds: Heparin (WaylandRita peoples. RESEARCH SOIL SCIENTIST) PUD Prophylasis PUD Prophylaxis: Protonix (Rita Yoder. RESEARCH SOIL SCIENTIST) Assessment/Plan Assessment/Plan ASSESSMENT Anorexia/weakness /weight loss ?? etiology r/o occult GI pathology r/o occult malignancy r/o ch intestinal ischemia Left lower ext pain 3 to 4 days d/t Ischemia Anemia , acute on ch , likely d/t ESRD s/p recent amputation R rig finger DM HTN HLP CAD s/p CABG w Known Graft occlusive disease TRE s/p R carotid A Endarterectomy ESRD on PD PLAN Hold BP for SBP <105 cautious IV hydration transfuse 1 Unit PRBC check Iron studies check occult stool test obtain GI consult , may need EGD PPI cont reglan encourage po intake add supplement / Nepro \ PD per renal peritoneal dialysis nightly cont ASA/ statin diabetic diet Glipizide accu checks qc & qhs sq heparin d/w PT & her sig other/friend at bedside in detail/answered all of her questions on admission I also called pt's daughterGiulia, , LM-AM. keep Left foot warm apply inch Nitropaste Left foot Dr tapia aware of this patient am labs show HGB 9.5 after transfusion will f/u Discussed Condition with: Patient, Son, Daughter Discussed Condition Comment D/W nurse Latasha, D/W Dr. Beyer Patient seen on his behalf. (Rita Yoder) Assessment/Plan pt is seen & examined d/w PT & his son & daughter at bedside in detail explained them pt's condition/answered all of theuir questions cont supportive care overall prognosis is poor PD per renal will f/u (Jamie Beyer MD) Rita Yoder Nov 17, 2016 14:14 Jamie Beyer MD Nov 17, 2016 14:43
--- NOTE | 2016-11-17 14:20 | HHI.NPPN ---
Subjective Additional Remarks No acute complaints Objective Data Data 11/16/16 11/17/16 19:00 07:00 Intake Total 730 ml 460 ml Output Total 961 ml 750 ml Balance -231 ml -290 ml Intake Oral 480 ml 460 ml IV Total 250 ml Output Urine Total 0 ml 750 ml Stool Total 0 ml Peritoneal Fluid 961 ml # Bowel Movements 0 Vital Signs Date Time Temp Pulse Resp B/P Pulse Ox O2 Delivery O2 Flow Rate FiO2 11/17/16 12:00 97.3 77 18 107/63 95 11/17/16 08:00 96.9 73 19 109/57 95 11/17/16 01:22 16 11/17/16 00:00 98.0 78 20 130/62 97 11/16/16 20:10 98.8 80 18 126/58 95 11/16/16 20:00 98.8 80 18 126/58 95 11/16/16 17:00 97.8 76 14 94/44 93 11/16/16 16:45 97.8 78 18 97/46 94 11/16/16 16:00 97.8 78 18 97/46 94 11/16/16 14:30 98.9 72 18 93/40 95 -: 11/17/16 0452 11/17/16 0452 Physical Exam General Appearance: Comfortable, Pale, Malnourished Eyes Eye Exam: Sclera White, Extraocular Movement Intact Ears & Nose Ears & Nose Exam: Nasal Mucosa [place] Throat Throat Exam: Oral Mucosa [place] & Moist Neck Neck Exam: Neck Supple, Trachea Midline Pulmonary Resp Exam: Clear Bilaterally, Breath Sounds Equal Cardiology CV Exam: Regular, Normal Sinus Rhythm Gastrointestinal/Abdomen GI Exam: Soft, Non-Tender, Bowel Sounds Present Integumentary Skin Exam: Warm, Dry Extremeties Extremities Exam: No Edema Neurologic Neuro Exam: Alert, Awake, Oriented, Speech Clear, Moving All Extremities Psychiatric Psych Exam: Appropriate Responses PUD Prophylasis PUD Prophylaxis: Protonix Assessment/Plan Problem List: (1) ESRD (end stage renal disease) on dialysis Plan: On peritoneal dialysis, follows with Dr. Dos Santos Tolerating PD here, 1.5%/2.5% solution, 770cc output recorded Will replace potassium, continue PD (2) Peripheral vascular disease Plan: The patient with signs of ischemic changes to the left greater foot. The patient is to follow with Dr. Murphy here and the plan is for arteriogram with possible intervention Jaxson (3) gangrene right ring finger Plan: Lleft ring finger amputation on November 07 his wounds are apparently clean. Continue to monitor at this point and follow up with surgery. (4) DM (diabetes mellitus) Plan: glucose stable, continue to monitor (5) HTN (hypertension) Plan: BP stable, continue to monitor (6) Anemia Plan: Transfused yesterday, continue to monitor. (7) Weight loss Plan: Seen with GI, plan for EGD Problem Qualifiers (1) DM (diabetes mellitus): Qualified Code: E13.22 - Other specified diabetes mellitus with chronic kidney disease on chronic dialysis, unspecified manager terminal insulin use status (2) HTN (hypertension): Qualified Code: I10 - Essential hypertension (3) Anemia: Qualified Code: D64.89 - Anemia due to other cause, not classified Wily Childress MD Nov 17, 2016 14:20
[2016-11-17] MEDS: POTASSIUM CHLOR 20 MEQ PREMIX 100 ML IV SCH ×2 (15:35→17:43)
[2016-11-17 16:00] VITALS: BP 115/65; PULSE 77; RESP 18; TEMP 98; O2SAT 95
[2016-11-17 20:00] VITALS: BP 120/66; PULSE 80; RESP 20; TEMP 98.4; O2SAT 96
[2016-11-18] VITALS: BP 120/72; PULSE 78; RESP 20; TEMP 98.6; O2SAT 98
[2016-11-18 06:09] LABS: AUTOMATED NEUTROPHIL # 9.4 TH/MM3 (1.8-7.7); BASOPHIL # 0.1 TH/MM3 (0-0.2); BASOPHIL % 0.5 % (0.0-2.0); EOSINOPHIL # 0.3 TH/MM3 (0-0.4); EOSINOPHIL % 2.5 % (0.0-4.0); HEMATOCRIT 34.2 % (39.0-51.0); HEMO FLAGS DIFF FINAL; LYMPH % 4.3 % (9.0-44.0); LYMPHOCYTE # 0.5 TH/MM3 (1.0-4.8); MEAN CELL VOLUME 89.7 FL (80.0-100.0); MEAN CORPUSCULAR HEMOGLOBIN 29.8 PG (27.0-34.0); MEAN CORPUSCULAR HGB CONC 33.2 % (32.0-36.0); MONO % 9.8 % (0.0-8.0); NEUT % 82.9 % (16.0-70.0); PLATELET COUNT 198 TH/MM3 (150-450); RED BLOOD COUNT 3.81 MIL/MM3 (4.50-5.90); RED CELL DISTRIBUTION WIDTH 18.2 % (11.6-17.2); WHITE BLOOD COUNT 11.3 TH/MM3 (4.0-11.0)
[2016-11-18 06:14] LABS: BICARBONATE 25.2 MEQ/L (21.0-32.0); POTASSIUM 3.7 MEQ/L (3.5-5.1)
[2016-11-18] MEDS: HEPARIN SODIUM - SQ 10,000 UNITS/ML VIAL SQ SCH ×3 (07:00→23:45)
[2016-11-18] MEDS: METOCLOPRAMIDE HCL 10 MG TAB PO SCH ×4 (07:00→21:00)
[2016-11-18] MEDS: NITROGLYCERIN 2% OINT 1 GM PACKET TOPICAL SCH ×3 (07:02→17:40)
[2016-11-18] MEDS: INSULIN ASPART SUPPLEMENTAL SCALE SQ SCH ×4 (07:06→21:20)
[2016-11-18 08:00] VITALS: BP 144/67; PULSE 100; RESP 17; TEMP 98.5; O2SAT 93
--- NOTE | 2016-11-18 09:48 | MH ---
cc: ALANNA BEYER MD DATE OF ADMISSION: 11/15/2016 No travel noted in the past 30 days or less. CHIEF COMPLAINT: Pain in his left lower leg and great toe. ADMISSION DIAGNOSIS: Ischemic left leg / great toe. HISTORY OF PRESENT ILLNESS: This is a pleasant 81-year-old white male who has had multiple medical comorbidities and admissions to the hospital over the past month. The patient was admitted this past Friday and discharged on Friday for sepsis cellulitis end-stage renal disease and dehydration. The patient noted some minor symptoms of numbness and tingling and pain in his left lower leg late Friday night but went to bed and did not think anything else about it. When he woke up Friday, he noted an increased numbness and pain associated with his left foot and left great toe. There is an open wound approximately the size of a quarter on the back of his left great toe. The whole foot and lower leg is cool to touch. Slight mottling noted. The patient experienced increased pain when trying to walk. The patient also has been having struggles with a decreased appetite and some weight loss over the past few months. He is an end-stage renal disease patient and does his own peritoneal dialysis every night around 10:00 to 10:30. The patient also had a partial amputation of his right index finger back in November 07, 2016. The patient was seen by his nurse practitioner on Friday along with followup appointments with his hand surgeon. There was then a vascular visit consulted per the nurse practitioner in which the patient saw today. He was sent over to the hospital for a direct admit from the vascular surgeon's office. The patient states that he takes his medications as prescribed but has not had any of his medications today. The patient does complain of bouts of nausea and some emesis. He denies any headache, denies any chest pain. No diarrhea. No constipation. Bowels have moved in the past 24 hours without any issues. The patient has no associated fevers or chills. He does ambulate with no assistance but as stated above, this has been more difficult over the past few days. The patient was a direct admission. PAST MEDICAL HISTORY: His past medical history includes: 1. End-stage renal disease. 2. Chronic pain. 3. Gastroparesis. 4. Lactic acidosis. 5. 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 6. Coronary artery disease. 7. Hyperlipidemia. 8. Hypertension. 9. Diabetes type 2. 10. Stage IV chronic kidney disease. 11. Congestive heart failure. PAST SURGICAL HISTORY: 1. Partial amputation of the right ring finger healing with sutures. 2. Tonsillectomy. 3. Right carotid endarterectomy. 4. CABG. 5. Cholecystectomy. ALLERGIES: 1. CONTRAST MEDIA. 2. SULFA DRUGS. MEDICATIONS: 1. Renvela 800 milligrams tab p.o. three times a day. 2. Procardia 10 milligrams tab. He takes 30 milligrams p.o. daily. 3. Colchicine 0.6 milligrams p.o. daily. 4. Calcitriol 0.5 micrograms p.o. daily. 5. Ambien 5 milligrams PRN. 6. Lopressor 50 milligrams daily. 7. Crestor 20 milligrams daily. 8. Nitroglycerin sublingual as needed. 9. Isosorbide ER 60 milligrams tab p.o. daily. 10. Vitamins. 11. Glipizide 5 milligrams p.o. daily. 12. Bumex 1 milligram p.o. daily. 13. He also had hydrocodone added on his discharge Friday to use PRN. 14. Reglan 10 milligrams four times a day a.c. added. 15. Analai-Colace added. SOCIAL HISTORY: The patient lives alone but he does have a significant other female friend who assists him as needed. He denies any tobacco use. He quit approximately thirty years ago. No illicit drugs. Rare alcohol use. FAMILY HISTORY: Parkinson's father, mother depression and from trauma. REVIEW OF SYSTEMS: A twelve-point review was completed. He is positive for generalized weakness and fatigue. Positive for weight loss. All other systems are negative. PHYSICAL EXAMINATION: GENERAL: The patient is a slim borderline frail white male resting in the bed alert, oriented x3 attempting to answer questions. He is a fair historian but does get some of his information out of order or mixed up. His significant other is trying to assist with his history. SKIN: Dusky, warm and dry. HEAD, EYES, EARS, NOSE, THROAT: Normocephalic and atraumatic. Pupils equal, round and reactive to light and accommodation. No icterus in his sclerae. No drainage. The mucous membranes are pale-pink. Tongue is dry and midline. NECK: The neck is supple. No jugular venous distention. CARDIOVASCULAR: Heart sounds. Regular rate and rhythm with an occasional irregular beat noted. Systolic murmur grade 3/6 noted at the lower left sternal border. No rubs. No gallops. He has no pedal edema bilaterally. RESPIRATORY: Lungs are clear to auscultation anteriorly and posteriorly. He uses no accessory muscles. His breath sounds are equal bilaterally. GASTROINTESTINAL: Abdomen is flat, soft, nontender, nondistended. MUSCULOSKELETAL: He moves all extremities with purpose. He does have some generalized weakness noted in his left lower leg but he can slightly move his toes on command. There is an obvious open wound that is red in color but not bleeding noted at the posterior aspect of the left great toe. He also has two very small minimal scabbed over areas on his right third and fourth toe. These have been marked. There is no redness or edema. These have been marked to follow for observation. Left foot and lower leg are cool to touch. Right leg is warm to touch. Posterior tibial pulse is felt in the right lower leg; no pulse felt in the left lower leg. NEUROLOGIC: He is awake. He is alert x3. As stated above, not always oriented to situation as far as history, recent history but does know about his current dialysis and care. Motor is grossly normal. He is 5/5 on his upper extremities with strength. Lower extremities are 4/5 on the right and 3/5 on the left. His speech is normal. PSYCHIATRIC: He has appropriate and affect. His judgment seems to be normal. LABS: Pending for now. RADIOLOGY: Pending for now. ASSESSMENT: 1. Ischemic left lower leg / great toe. 2. Diabetes type 2. 3. End-stage renal disease on peritoneal dialysis. 4. Recent history of right index finger partial amputation. 5. Hyperlipidemia. 6. Hypertension. 7. Diabetes mellitus type 2. 8. Congestive heart failure. 9. Coronary artery disease. PLAN: 1. Admit and monitor his labs. 2. Place him on an 1800 calorie ADA diet. 3. Reconcile all of his medications and get doses in him tonight. 4. We have consulted wound care to follow for their expert opinion for both of his lower legs and any other issues warranted. 5. Nephrology consult for the patient's peritoneal dialysis. 6. Vascular surgery consult. 7. Dr. Beyer has spoken to the vascular surgeon and there is going to be hopeful surgery set up for some type of bypass Friday a.m. 8. Will monitor Accu-Cheks and give sliding scale insulin as warranted. The patient is a full code, full aggressive care per his request and we will follow. Dictated by SHANTHI Greene. MD FINA Ash/THEA /6:05 PM /9:46 AM pt is seen & Examined d/w PT & his d/w wilian d/w Dr tapia see orders see H&P will f/u Alanna Beyer MD Nov 15, 2016 18:11 [facility]
[2016-11-18] MEDS: ISOSORBIDE MONONITRATE 60 MG TAB PO SCH (10:07)
[2016-11-18] MEDS: glipiZIDE 5 MG TAB PO SCH (10:07)
[2016-11-18] MEDS: SEVELAMER CARBONATE 800 MG TAB PO SCH ×3 (10:07→17:39)
[2016-11-18] MEDS: COLCHICINE 0.6 MG TAB PO SCH (10:07)
[2016-11-18] MEDS: CALCITRIOL 0.25 MCG CAP PO SCH (10:07)
[2016-11-18] MEDS: METOPROLOL TARTRATE 50 MG TAB PO SCH (10:08)
[2016-11-18] MEDS: ATORVASTATIN 40 MG TAB PO SCH (10:08)
[2016-11-18] MEDS: ACETAMINOPHEN/HYDROcodone 325 MG/10 MG TAB PO PRN (10:25)
[2016-11-18 12:00] VITALS: BP 107/51; PULSE 68; RESP 18; TEMP 97.9; O2SAT 93
[2016-11-18] MEDS ORDERED: PROPOFOL 200 MG/20 ML AMP IV ONE (12:00)
[2016-11-18] MEDS ORDERED: SODIUM CHLOR 0.9% 250 ML INJ 250 ML IV ONE (12:00)
--- NOTE | 2016-11-18 12:15 | HHI.NPPN ---
Subjective Renal Failure: Chronic, End Stage Renal Disease Interval History He continues to do poorly. To have left leg arteriogram today. (Sharmila Dennis) Review of Systems General Constitutional: Fatigue (Sharmila Dennis) Gastrointestinal GI Remarks decreased appetite (Sharmila Dennis) Objective Data Data 11/17/16 11/18/16 19:00 07:00 Intake Total 616 ml 580 ml Output Total 772 ml 0 ml Balance -156 ml 580 ml Intake Oral 240 ml 580 ml IV Total 376 ml Output Urine Total 0 ml 0 ml Peritoneal Fluid 772 ml # Bowel Movements 0 0 Vital Signs Date Time Temp Pulse Resp B/P Pulse Ox O2 Delivery O2 Flow Rate FiO2 11/18/16 08:00 98.5 100 17 144/67 93 11/18/16 00:00 98.6 78 20 120/72 98 11/17/16 20:00 98.4 80 20 120/66 96 11/17/16 19:32 16 11/17/16 16:00 98.0 77 18 115/65 95 (Sharmila Dennis) -: 11/18/16 0508 11/18/16 0508 Microbiology 11/18/16 Stool Occult Blood (MIKE), Received Pending (Sharmila Dennis) Physical Exam General Appearance: No Acute Distress, Comfortable, Pale, Malnourished (Sharmila Dennis) Eyes Eye Exam: Sclera White, Extraocular Movement Intact (Sharmila Dennis) Ears & Nose Ears & Nose Exam: Nasal Mucosa [place] (Sharmila Dennis) Throat Throat Exam: Oral Mucosa [place] & Moist (Sharmila Dennis) Neck Neck Exam: Neck Supple, Trachea Midline (Sharmila Dennis) Pulmonary Resp Exam: Clear Bilaterally, Breath Sounds Equal, No Distress (Sharmila Dennis) Cardiology CV Exam: Regular, Normal Sinus Rhythm (Sharmila Dnenis) Gastrointestinal/Abdomen GI Exam: Soft, Non-Tender, Bowel Sounds Present (Sharmila Dennis) Integumentary Skin Exam: Warm, Dry (Sharmila Dennis) Extremeties Extremities Exam: No Edema Extremeties Remarks right ring finger amputation left great toe necrosis (Sharmila Dennis) Neurologic Neuro Exam: Alert, Awake, Oriented, Speech Clear, Moving All Extremities ( Sharmila Dennis) Psychiatric Psych Exam: Appropriate Responses (Sharmila Dennis) PUD Prophylasis PUD Prophylaxis: Protonix (Sharmila Dennis) Assessment/Plan Assessment Summary: Anemia of CKD, Malnutrition Problem List: (1) ESRD (end stage renal disease) on dialysis Plan: continue nightly PD, Tolerating PD here, 1.5%/2.5% solution, good UF reported K has been replaced he has decreased appetite, will give Marinol and reevaluate high protein diet he is doing poorly with PD, discussed goals with family the pt has said he does not wish to undergo Hemodialysis, may benefit from hospice consultation continue non calcium containing phosphate binders daily renal panel (2) Peripheral vascular disease Plan: Dr. tapia following to have angiogram today, further course depending on extent of disease and pt wishes (3) gangrene right ring finger Plan: right ring finger amputation on November 07 his wounds are apparently clean. Continue to monitor at this point and follow up with surgery. (4) DM (diabetes mellitus) Plan: glucose stable, continue to monitor (5) HTN (hypertension) Plan: BP stable, continue to monitor (6) Anemia Plan: Transfused yesterday, continue to monitor. (7) Weight loss Plan: Seen with GI, plan for EGD (Sharmila Dennis) Plan patient was seen and examined. Long discussion with patient's family. They are leaning towards palliative care, and hospice. They are concerned about his poor quality of life. Their decision and the patient's own will be influenced by findings of angiogram. Start Marinol for appetite stimulation. Continue dialysis for now. (Rik Dos Santos MD) Problem Qualifiers (1) DM (diabetes mellitus): Qualified Code: E13.22 - Other specified diabetes mellitus with chronic kidney disease on chronic dialysis, unspecified care home insulin use status (2) HTN (hypertension): Qualified Code: I10 - Essential hypertension (3) Anemia: Qualified Code: D64.89 - Anemia due to other cause, not classified Sharmila Dennis Nov 18, 2016 12:15 Rik Dos Santos MD Nov 18, 2016 12:19
[2016-11-18] MEDS: SODIUM CHLOR 0.9% 1000 ML INJ 1,000 ML IV SCH (13:38)
--- NOTE | 2016-11-18 14:18 | HHI.PR ---
Subjective Hospital Day: 2 Subjective Remarks left foot great toe pain feeling poorly no cp no sob poor appetite going for EGD today no fever significant other at bsd Review of Systems Constitutional Constitutional: Weakness Constitutional Remarks 12 point ROS completed, negative except as noted above Musculoskeletal MS: Weakness, Discomfort/Pain Integumentary Skin: Wounds Vitals/Results Intake & Output 11/17/16 11/17/16 11/18/16 15:00 23:00 07:00 Intake Total 616 ml 340 ml 240 ml Output Total 772 ml 0 ml 0 ml Balance -156 ml 340 ml 240 ml Intake Oral 240 ml 340 ml 240 ml IV Total 376 ml Output Urine Total 0 ml 0 ml 0 ml Peritoneal Fluid 772 ml # Bowel Movements 0 0 0 Vital Signs Vital Signs Date Time Temp Pulse Resp B/P Pulse Ox O2 Delivery O2 Flow Rate FiO2 11/18/16 12:00 97.9 68 18 107/51 93 11/18/16 08:00 98.5 100 17 144/67 93 11/18/16 00:00 98.6 78 20 120/72 98 11/17/16 20:00 98.4 80 20 120/66 96 11/17/16 19:32 16 11/17/16 16:00 98.0 77 18 115/65 95 CBC/BMP: 11/18/16 0508 11/18/16 0508 Lab Results Laboratory Tests Test 11/18/16 05:08 White Blood Count 11.3 TH/MM3 Red Blood Count 3.81 MIL/MM3 Hemoglobin 11.3 GM/DL Hematocrit 34.2 % Mean Corpuscular Volume 89.7 FL Mean Corpuscular Hemoglobin 29.8 PG Mean Corpuscular Hemoglobin 33.2 % Concent Red Cell Distribution Width 18.2 % Platelet Count 198 TH/MM3 Mean Platelet Volume 7.5 FL Neutrophils (%) (Auto) 82.9 % Lymphocytes (%) (Auto) 4.3 % Monocytes (%) (Auto) 9.8 % Eosinophils (%) (Auto) 2.5 % Basophils (%) (Auto) 0.5 % Neutrophils # (Auto) 9.4 TH/MM3 Lymphocytes # (Auto) 0.5 TH/MM3 Monocytes # (Auto) 1.1 TH/MM3 Eosinophils # (Auto) 0.3 TH/MM3 Basophils # (Auto) 0.1 TH/MM3 CBC Comment DIFF FINAL Differential Comment Sodium Level 137 MEQ/L Potassium Level 3.7 MEQ/L Chloride Level 97 MEQ/L Carbon Dioxide Level 25.2 MEQ/L Anion Gap 15 MEQ/L Blood Urea Nitrogen 51 MG/DL Creatinine 8.14 MG/DL Estimat Glomerular Filtration 6 ML/MIN Rate Random Glucose 202 MG/DL Calcium Level 8.5 MG/DL Microbiology Microbiology 11/18/16 Stool Occult Blood (MIKE) - Final, Complete HEMOCCULT NEGATIVE Physical Exam General General Appearance: No Acute Distress, Comfortable, Pale, Malnourished Eyes Eye Exam: Pupils Equal, Pupils Reactive Ears & Nose Ears & Nose Exam: Nasal Mucosa [place] Throat Throat Exam: Oral Mucosa [place] & Moist Neck Neck Exam: Neck Supple, Trachea Midline Pulmonary Resp Exam: Breath Sounds Equal, No Distress, Diminished Breath Sounds Cardiology CV Exam: Regular, Normal Sinus Rhythm Gastrointestinal/Abdomen GI Exam: Soft, Non-Tender, Bowel Sounds Present, Non-Distended GI Remarks PD catheter right abdomen, dressing D/I Musculoskeletal MS Exam: Joints Intact Integumentary Skin Exam: Warm, Dry Extremeties Extremities Exam: No Edema Extremeties Remarks unable to palpate left pedal pulse right pedal pulse faint left great toe necrotic Neurologic Neuro Exam: Alert, Awake, Oriented, Speech Clear, Moving All Extremities Psychiatric Psych Exam: Appropriate Responses VTE Prophylaxis VTE Prophylaxis Device: SCDs PUD Prophylasis PUD Prophylaxis: Protonix Assessment/Plan Problem List: (1) necrosis left greater toe (2) Ischemia of left lower extremity (3) Anorexia (4) Anemia (5) Weight loss (6) Peripheral vascular disease (7) HTN (hypertension) (8) DM (diabetes mellitus) (9) CHF (congestive heart failure) (10) CAD (coronary artery disease) (11) History of amputation of finger of right hand (12) ESRD (end stage renal disease) on dialysis (13) Hypotension, unspecified Assessment/Plan left great toe necrosis, ischemia left leg, PAD -Dr. Murphy consulted -poss. arteriogram, orders pending -continue with Nitro paste -Neurovascular checks -Pain management Anemia, wt. loss, anorexia -GI consulted, input appreciated -S/P 1 unit PRBC, HH stable -low Iron stores -stool OB negative -for EGD today -started on Marinol per nephro, monitor -continue PPI, Reglan -Nepro ESRD, PD at -appreciate nephrology input -per renal, pt. not tolerating PD well, pt. doesn't want HD. Family leaning towards palliative care, and hospice. They are concerned about his poor quality of life.. Their decision and the patient's own will be influenced by findings of angiogram. Hypotension, -cautions hydration, resolved, will dc IVF -BP stable today, monitor closely CHF, chronic -stop IVF -taking PO well Hyperlipidemia -continue statins CAD -continue home medications DM -diabetic diet -Glipizide -accu checks qc & qhs Heparin for DVT prophylaxis PPI for GI prophylaxis Labs in am Condition guarded D/W RN D/W pt, SO D/W Dr. Beyer This patient was seen by myself and Dr. Beyer, this note is written on his behalf. Problem Qualifiers (1) Anemia: Qualified Code: D64.89 - Anemia due to other cause, not classified (2) HTN (hypertension): Qualified Code: I10 - Essential hypertension (3) DM (diabetes mellitus): Qualified Code: E13.22 - Other specified diabetes mellitus with chronic kidney disease on chronic dialysis, unspecified halfway insulin use status (4) CHF (congestive heart failure): Qualified Code: I50.9 - Chronic congestive heart failure, unspecified congestive heart failure type (5) CAD (coronary artery disease): Qualified Code: I25.10 - Coronary artery disease involving [place] coronary artery of [place] heart without angina pectoris Riri Love Nov 18, 2016 14:18
[2016-11-18] MEDS ORDERED: FAMOTIDINE 20 MG/2 ML VIAL ONE (15:52)
[2016-11-18] MEDS ORDERED: METOCLOPRAMIDE HCL 10 MG/2 ML VIAL ONE (15:52)
[2016-11-18 16:00] VITALS: BP 106/59; PULSE 72; RESP 17; TEMP 97.9; O2SAT 95
[2016-11-18] MEDS: DRONABINOL 5 MG CAP PO SCH (16:00)
[2016-11-18] MEDS ORDERED: MIDAZOLAM HCL 2 MG/2 ML VIAL ONE (16:08)
[2016-11-18] MEDS ORDERED: PROTAMINE SULFATE 50 MG/5 ML VIAL ONE (16:13)
[2016-11-18] MEDS ORDERED: KETAMINE HCL 500 MG/5 ML VIAL ONE (16:13)
[2016-11-18] MEDS ORDERED: HEPARIN SODIUM - SQ 10,000 UNITS/ML VIAL OTHER ONE (16:54)
[2016-11-18] MEDS ORDERED: IOHEXOL 350 MG/ML 100 ML BTL (for RAD DIAG) OTHER ONE (16:54)
[2016-11-18] MEDS ORDERED: BUPIVACAINE/EPINEPHRINE 0.5% PF 30 ML VIAL INFIL ONE (16:54)
[2016-11-18] MEDS ORDERED: DO NOT ADM ANY ANTICOAGULANT DRUGS XX PRN (18:17)
[2016-11-18] MEDS ORDERED: DEXTROSE 50% IN WATER 50 ML SYRINGE ONE ×2 (19:15→22:03)
[2016-11-19] MEDS: ZOLPIDEM TARTRATE 5 MG TAB PO PRN (00:50)
[2016-11-19] MEDS: ACETAMINOPHEN/HYDROcodone 325 MG/10 MG TAB PO PRN ×2 (00:50→14:50)
[2016-11-19] MEDS: HEPARIN SODIUM - SQ 10,000 UNITS/ML VIAL SQ SCH ×2 (05:40→13:51)
[2016-11-19] MEDS: NITROGLYCERIN 2% OINT 1 GM PACKET TOPICAL SCH ×4 (05:40→17:16)
[2016-11-19] MEDS: METOCLOPRAMIDE HCL 10 MG TAB PO SCH ×4 (05:49→20:15)
[2016-11-19] MEDS: INSULIN ASPART SUPPLEMENTAL SCALE SQ SCH ×4 (05:49→20:15)
[2016-11-19 06:25] LABS: BICARBONATE 21.6 MEQ/L (21.0-32.0); POTASSIUM 4.6 MEQ/L (3.5-5.1)
[2016-11-19] MEDS: ATORVASTATIN 40 MG TAB PO SCH (09:00)
[2016-11-19] MEDS: ISOSORBIDE MONONITRATE 60 MG TAB PO SCH (09:00)
[2016-11-19] MEDS: COLCHICINE 0.6 MG TAB PO SCH (09:00)
[2016-11-19] MEDS: glipiZIDE 5 MG TAB PO SCH (09:00)
[2016-11-19] MEDS: METOPROLOL TARTRATE 50 MG TAB PO SCH (09:00)
[2016-11-19] MEDS: CALCITRIOL 0.25 MCG CAP PO SCH (09:00)
[2016-11-19] MEDS: SEVELAMER CARBONATE 800 MG TAB PO SCH ×4 (09:00→17:22)
[2016-11-19] MEDS ORDERED: PILL SPLITTER OTHER PRN (10:00)
[2016-11-19] MEDS ORDERED: DIMETHICONE/OXYBENZONE/PADMIATE LIP BALM 4.25 GM ONE (10:37)
[2016-11-19] MEDS: DRONABINOL 5 MG CAP PO SCH ×2 (11:00→15:10)
--- NOTE | 2016-11-19 12:36 | HHI.NPPN ---
Subjective Complaints: Confused Renal Failure: Chronic, End Stage Renal Disease Interval History Seen in the PACU after left leg angiogram. at bedside. He is deciding on whether to convert to hospice services. (Sharmila Dennis) Review of Systems General Constitutional: Fatigue (Sharmila Dennis) Gastrointestinal GI Remarks decreased appetite (Sharmila Dennis) Objective Data Data 11/18/16 11/19/16 19:00 07:00 Intake Total 268 ml 120 ml Output Total 930 ml 200 ml Balance -662 ml -80 ml Intake Oral 100 ml 100 ml IV Total 168 ml 20 ml Output Urine Total 75 ml 200 ml Peritoneal Fluid 855 ml # Voids 3 # Bowel Movements 1 Vital Signs Date Time Temp Pulse Resp B/P Pulse Ox O2 Delivery O2 Flow Rate FiO2 11/19/16 11:00 76 16 109/55 99 Nasal Cannula 2 11/19/16 10:00 88 16 140/65 99 Nasal Cannula 2 11/19/16 09:00 92 15 126/59 99 Nasal Cannula 3 11/19/16 08:00 98.5 94 16 117/84 98 Nasal Cannula 3 11/19/16 06:41 99 Nasal Cannula 3 11/19/16 06:00 98.0 101 16 119/60 99 Nasal Cannula 3 11/19/16 05:00 108 16 163/96 97 Nasal Cannula 3 11/19/16 04:00 83 16 141/71 98 Nasal Cannula 3 11/19/16 03:02 85 14 108/56 99 Nasal Cannula 3 11/19/16 01:00 84 14 114/51 96 Nasal Cannula 3 11/19/16 00:52 97 Nasal Cannula 3 11/19/16 00:12 84 14 141/90 96 Nasal Cannula 3 11/18/16 23:00 73 14 125/64 97 Nasal Cannula 3 11/18/16 22:00 74 14 110/58 97 Nasal Cannula 3 11/18/16 21:00 76 16 144/68 97 Nasal Cannula 3 11/18/16 20:35 72 16 145/65 97 Nasal Cannula 3 11/18/16 20:30 72 16 145/65 97 Nasal Cannula 3 11/18/16 20:00 66 16 132/55 97 Nasal Cannula 3 11/18/16 19:30 66 16 131/56 98 Nasal Cannula 3 11/18/16 19:15 64 16 115/50 98 Nasal Cannula 3 11/18/16 19:00 64 16 111/50 100 Nasal Cannula 3 11/18/16 18:45 64 16 104/47 100 Nasal Cannula 3 11/18/16 18:30 64 16 109/51 99 Nasal Cannula 3 11/18/16 18:22 97.9 98 16 104/51 99 Nasal Cannula 3 11/18/16 16:00 97.9 72 17 106/59 95 (Sharmila Dennis) -: 11/18/16 0508 11/19/16 0530 Tubes & Lines: Tenckhoff Catheter (Sharmila Dennis) Physical Exam General Appearance: No Acute Distress, Comfortable, Pale, Malnourished (Sharmila Dennis) Eyes Eye Exam: Pupils Equal, Pupils Reactive (Sharmila Dennis) Ears & Nose Ears & Nose Exam: Nasal Mucosa [place] (Sharmila Dennis) Neck Neck Exam: Neck Supple, Trachea Midline (Sharmila Dennis) Pulmonary Resp Exam: Breath Sounds Equal, No Distress, Diminished Breath Sounds (Sharmila Dennis) Cardiology CV Exam: Regular, Normal Sinus Rhythm (Sharmila Dennis) Gastrointestinal/Abdomen GI Exam: Soft, Non-Tender, Bowel Sounds Present, Non-Distended (Sharmila Dennis) Musculoskeletal MS Exam: Joints Intact, Normal Tone (Sharmila Dennis) Integumentary Skin Exam: Warm, Dry (Sharmila Dennis) Extremeties Extremities Exam: No Edema Extremeties Remarks right ring finger partial amputation left great toe necrosis (Sharmila Dennis) Neurologic Neuro Exam: Alert, Awake, Oriented, Speech Clear, Moving All Extremities ( Sharmila Dennis) Psychiatric Psych Remarks flat affect, sad (Sharmila Dennis) VTE Prophylaxis Device: SCDs (Sharmila Dennis) PUD Prophylasis PUD Prophylaxis: Protonix (Sharmila Dennis) Assessment/Plan Discussed Condition With: Patient, Spouse Assessment Summary: Anemia of CKD, Malnutrition, End Stage Renal Disease Problem List: (1) ESRD (end stage renal disease) on dialysis Plan: he has been doing poorly overall especially in the past month to two due to extent of medical issues, he may elect hospice services continue nightly PD for the meantime, on a 1.5%/2.5% solution, good UF reported he does not wish to convert to HD Marinol started yesterday, no difference appreciated, on a high protein diet K has corrected continue non calcium containing phosphate binders daily renal panel d/w at bedside (2) Peripheral vascular disease Plan: Dr. Murphy following s/p angiogram this morning, unsure if intervention is possible (3) gangrene right ring finger Plan: right ring finger amputation on November 07 his wounds are apparently clean. Continue to monitor at this point, recommend to follow up with surgery after discharge if needed. (4) DM (diabetes mellitus) Plan: glucose stable, continue to monitor (5) HTN (hypertension) Plan: BP stable, continue to monitor (6) Anemia Plan: monitor hemoglobin he was transfused on 11/16 (7) Weight loss Plan: Seen with GI, he has refused EGD Marinol started (Sharmila Dennis) Plan patient was seen and examined. Long discussion with him and his significant other. Poor prognosis. He decided to opt for dialysis. (Rik Dos Santos MD) Problem Qualifiers (1) DM (diabetes mellitus): Qualified Code: E13.22 - Other specified diabetes mellitus with chronic kidney disease on chronic dialysis, unspecified chcf insulin use status (2) HTN (hypertension): Qualified Code: I10 - Essential hypertension (3) Anemia: Qualified Code: D64.89 - Anemia due to other cause, not classified Sharmila Dennis Nov 19, 2016 12:36 Rik Dos Santos MD Nov 20, 2016 07:43
--- NOTE | 2016-11-19 14:40 | HHI.PR ---
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 deciding whether to go with hospice refused EGD yesterday Review of Systems Constitutional Constitutional: Weakness Constitutional Remarks 12 point ROS completed, negative except as noted above Musculoskeletal MS: Weakness, Discomfort/Pain Integumentary Skin: Wounds Vitals/Results Intake & Output 11/18/16 11/18/16 11/19/16 15:00 23:00 07:00 Intake Total 268 ml 20 ml 100 ml Output Total 930 ml 200 ml Balance -662 ml 20 ml -100 ml Intake Oral 100 ml 100 ml IV Total 168 ml 20 ml Output Urine Total 75 ml 200 ml Peritoneal Fluid 855 ml # Voids 3 # Bowel Movements 1 Vital Signs Vital Signs Date Time Temp Pulse Resp B/P Pulse Ox O2 Delivery O2 Flow Rate FiO2 11/19/16 14:00 75 16 116/73 92 Room Air 11/19/16 13:00 73 14 109/54 93 Room Air 11/19/16 11:00 76 16 109/55 99 Nasal Cannula 2 11/19/16 10:00 88 16 140/65 99 Nasal Cannula 2 11/19/16 09:00 92 15 126/59 99 Nasal Cannula 3 11/19/16 08:00 98.5 94 16 117/84 98 Nasal Cannula 3 11/19/16 06:41 99 Nasal Cannula 3 11/19/16 06:00 98.0 101 16 119/60 99 Nasal Cannula 3 11/19/16 05:00 108 16 163/96 97 Nasal Cannula 3 11/19/16 04:00 83 16 141/71 98 Nasal Cannula 3 11/19/16 03:02 85 14 108/56 99 Nasal Cannula 3 11/19/16 01:00 84 14 114/51 96 Nasal Cannula 3 11/19/16 00:52 97 Nasal Cannula 3 11/19/16 00:12 84 14 141/90 96 Nasal Cannula 3 11/18/16 23:00 73 14 125/64 97 Nasal Cannula 3 11/18/16 22:00 74 14 110/58 97 Nasal Cannula 3 11/18/16 21:00 76 16 144/68 97 Nasal Cannula 3 11/18/16 20:35 72 16 145/65 97 Nasal Cannula 3 11/18/16 20:30 72 16 145/65 97 Nasal Cannula 3 11/18/16 20:00 66 16 132/55 97 Nasal Cannula 3 11/18/16 19:30 66 16 131/56 98 Nasal Cannula 3 11/18/16 19:15 64 16 115/50 98 Nasal Cannula 3 11/18/16 19:00 64 16 111/50 100 Nasal Cannula 3 11/18/16 18:45 64 16 104/47 100 Nasal Cannula 3 11/18/16 18:30 64 16 109/51 99 Nasal Cannula 3 11/18/16 18:22 97.9 98 16 104/51 99 Nasal Cannula 3 11/18/16 16:00 97.9 72 17 106/59 95 CBC/BMP: 11/18/16 0508 11/19/16 0530 Lab Results Laboratory Tests Test 11/19/16 05:30 Sodium Level 139 MEQ/L Potassium Level 4.6 MEQ/L Chloride Level 98 MEQ/L Carbon Dioxide Level 21.6 MEQ/L Anion Gap 19 MEQ/L Blood Urea Nitrogen 55 MG/DL Creatinine 8.22 MG/DL Estimat Glomerular Filtration 6 ML/MIN Rate Random Glucose 229 MG/DL Calcium Level 8.1 MG/DL Phosphorus Level 5.8 MG/DL Albumin 2.0 GM/DL Physical Exam General General Appearance: No Acute Distress, Comfortable, Pale, Malnourished Eyes Eye Exam: Pupils Equal, Pupils Reactive Ears & Nose Ears & Nose Exam: Nasal Mucosa [place] Neck Neck Exam: Neck Supple, Trachea Midline Pulmonary Resp Exam: Breath Sounds Equal, No Distress, Diminished Breath Sounds Cardiology CV Exam: Regular, Normal Sinus Rhythm Gastrointestinal/Abdomen GI Exam: Soft, Non-Tender, Bowel Sounds Present, Non-Distended GI Remarks PD catheter right abdomen, dressing D/I Musculoskeletal MS Exam: Joints Intact, Normal Tone Integumentary Skin Exam: Warm, Dry Extremeties Extremities Exam: No Edema Extremeties Remarks unable to palpate left pedal pulse right pedal pulse faint left great toe necrotic amputation site of right hand finger, erythematous, surgical incision dark Neurologic Neuro Exam: Alert, Awake, Oriented, Speech Clear, Moving All Extremities VTE Prophylaxis VTE Prophylaxis Device: SCDs PUD Prophylasis PUD Prophylaxis: Protonix Assessment/Plan Problem List: (1) necrosis left greater toe (2) Ischemia of left lower extremity (3) Anorexia (4) Anemia (5) Weight loss (6) Peripheral vascular disease (7) HTN (hypertension) (8) DM (diabetes mellitus) (9) CHF (congestive heart failure) (10) CAD (coronary artery disease) (11) History of amputation of finger of right hand (12) ESRD (end stage renal disease) on dialysis (13) Hypotension, unspecified Assessment/Plan left great toe necrosis, ischemia left leg, PAD -Dr. Murphy consulted, input appreciated -continue with Nitro paste -Neurovascular checks -Pain management -S/P LLE angiogram 11/18 -per Dr. Murphy, may need left TMA and poss. more surgery to finger right hand Anemia, wt. loss, anorexia -GI consulted, input appreciated -S/P 1 unit PRBC, HH stable -low Iron stores -stool OB negative -pt. refused EGD -continue on Marinol per nephro, monitor -continue PPI, Reglan -Nepro supplement ESRD, PD at HS -appreciate nephrology input -per renal, pt. not tolerating PD well, pt. doesn't want HD. Hypotension, -resolved, off IVF -BP stable today, monitor closely CHF, chronic -stable Hyperlipidemia -continue statins CAD -continue home medications DM -diabetic diet -Glipizide -accu checks qc & qhs Heparin for DVT prophylaxis PPI for GI prophylaxis Condition guarded pt.and SO to decide whether to transition to hospice services D/W RN D/W pt, SO D/W Dr. Beyer This patient was seen by myself and Dr. Beyer, this note is written on his behalf. Problem Qualifiers (1) Anemia: Qualified Code: D64.89 - Anemia due to other cause, not classified (2) HTN (hypertension): Qualified Code: I10 - Essential hypertension (3) DM (diabetes mellitus): Qualified Code: E13.22 - Other specified diabetes mellitus with chronic kidney disease on chronic dialysis, unspecified joint terminal attack controller insulin use status (4) CHF (congestive heart failure): Qualified Code: I50.9 - Chronic congestive heart failure, unspecified congestive heart failure type (5) CAD (coronary artery disease): Qualified Code: I25.10 - Coronary artery disease involving [place] coronary artery of [place] heart without angina pectoris Riri Love Nov 19, 2016 14:40
[2016-11-19 16:00] VITALS: BP 80/40; PULSE 80; RESP 16; TEMP 97.9; O2SAT 98
[2016-11-19 16:15] VITALS: BP 80/40
[2016-11-19] MEDS ORDERED: SODIUM CHLOR 0.9% 250 ML INJ 250 ML IV ONE (16:15)
[2016-11-19 16:36] VITALS: BP 98/47
--- NOTE | 2016-11-19 18:19 | HHI.DCPOC ---
Discharge Care Plan Diagnosis: (1) ESRD (end stage renal disease) on dialysis (2) gangrene right ring finger (3) Anorexia (4) Ischemia of left lower extremity (5) necrosis left greater toe (6) Hypotension, unspecified (7) CAD (coronary artery disease) (8) CHF (congestive heart failure) (9) DM (diabetes mellitus) (10) HTN (hypertension) (11) History of amputation of finger of right hand Your Health Problems Are: Inflammation Leg Swelling Goals to Promote Your Health * To prevent worsening of your condition and complications * To maintain your health at the optimal level Directions to Meet Your Goals Take your medications as prescribed Follow your dietary instruction Follow activity as directed Keep your appointments as scheduled Take your immunizations and boosters as scheduled If your symptoms worsen call your PCP, if no PCP go to Urgent Care Center or Emergency Room Smoking is Dangerous to Your Health. Avoid second hand smoke Call the 24-hour hour crisis hotline for domestic abuse at Riri Love Nov 19, 2016 18:18
--- NOTE | 2016-11-19 18:22 | HHI.DS ---
Discharge Summary Admission Date Nov 15, 2016 at 15:55 Discharge Date: Nov 19, 2016 Admitting Diagnosis (1) Ischemia of left lower extremity (2) necrosis left greater toe (3) Hypotension, unspecified (4) Chronic anemia (5) gangrene right ring finger (6) Anorexia (7) ESRD (end stage renal disease) on dialysis (8) Weight loss (9) Peripheral vascular disease (10) History of amputation of finger of right hand (11) H/O carotid endarterectomy (12) Hx of CABG Procedures S/P LLE angiogram 11/18 CBC/BMP: 11/18/16 0508 11/19/16 0530 Significant Findings Laboratory Tests Test 11/17/16 11/18/16 11/19/16 04:52 05:08 05:30 Red Blood Count 3.18 MIL/MM3 3.81 MIL/MM3 (4.50-5.90) (4.50-5.90) Hemoglobin 9.5 GM/DL 11.3 GM/DL (13.0-17.0) (13.0-17.0) Hematocrit 28.1 % 34.2 % (39.0-51.0) (39.0-51.0) Red Cell Distribution Width 18.4 % 18.2 % (11.6-17.2) (11.6-17.2) Potassium Level 3.2 MEQ/L (3.5-5.1) Chloride Level 97 MEQ/L 97 MEQ/L (98-107) (98-107) Blood Urea Nitrogen 53 MG/DL (7-18) 51 MG/DL (7-18) 55 MG/DL (7-18) Creatinine 8.18 MG/DL 8.14 MG/DL 8.22 MG/DL (0.60-1.30) (0.60-1.30) (0.60-1.30) Estimat Glomerular Filtration 6 ML/MIN (>89) 6 ML/MIN (>89) 6 ML/MIN (>89) Rate Random Glucose 119 MG/DL 202 MG/DL 229 MG/DL (74-106) (74-106) (74-106) Calcium Level 8.1 MG/DL 8.1 MG/DL (8.5-10.1) (8.5-10.1) Cholesterol Level 69 MG/DL (120-200) HDL Cholesterol 28.8 MG/DL (40.0-60.0) White Blood Count 11.3 TH/MM3 (4.0-11.0) Neutrophils (%) (Auto) 82.9 % (16.0-70.0) Lymphocytes (%) (Auto) 4.3 % (9.0-44.0) Monocytes (%) (Auto) 9.8 % (0.0-8.0) Neutrophils # (Auto) 9.4 TH/MM3 (1.8-7.7) Lymphocytes # (Auto) 0.5 TH/MM3 (1.0-4.8) Monocytes # (Auto) 1.1 TH/MM3 (0-0.9) Anion Gap 19 MEQ/L (5-15) Phosphorus Level 5.8 MG/DL (2.5-4.9) Albumin 2.0 GM/DL (3.4-5.0) Hospital Course This is a pleasant 81-year-old white male who has had multiple medical comorbidities and admissions to the hospital over the past month. The patient was admitted this past Friday and discharged on Friday for sepsis cellulitis end-stage renal disease and dehydration. The patient noted some minor symptoms of numbness and tingling and pain in his left lower leg late Friday night but went to bed and did not think anything else about it. When he woke up Friday, he noted an increased numbness and pain associated with his left foot and left great toe. There was an open wound approximately the size of a quarter on the back of his left great toe. The whole foot and lower leg was cool to touch. Slight mottling noted. The patient experienced increased pain when trying to walk. The patient also has been having struggles with a decreased appetite and some weight loss over the past few months. He is an end-stage renal disease patient and does his own peritoneal dialysis every night around 10:00 to 10:30. The patient also had a partial amputation of his right index finger back in November 07, 2016. The patient was seen by his nurse practitioner on Friday along with followup appointments with his hand surgeon. He was referred to see Dr. Murphy, who [place] [facility] [place] The patient did complain of bouts of nausea and some emesis. He denied any headache, denied any chest pain. No diarrhea. No constipation. Bowels have moved in the past 24 hours without any issues. The patient has no associated fevers or chills. He does ambulate with no assistance but as stated above, this has been more difficult over the past few days. Pt. was admitted for the following: (1) necrosis left greater toe (2) Ischemia of left lower extremity (3) Anorexia (4) Anemia (5) Weight loss (6) Peripheral vascular disease (7) HTN (hypertension) (8) DM (diabetes mellitus) (9) CHF (congestive heart failure) (10) CAD (coronary artery disease) (11) History of amputation of finger of right hand (12) ESRD (end stage renal disease) on dialysis (13) Hypotension, unspecified During the course of the hospitalization, the following took place: left great toe necrosis, ischemia left leg, PAD -Dr. Murphy consulted, input appreciated, recommended angiogram and poss. endovascular repair -appropriate pain management was ordered - Nitro paste applied to foot -Neurovascular checks ordered -S/P LLE angiogram 11/18 -Attending d/w Dr. Murphy- severe small vessel disease & some additional proximal vessel disease. He was able to open prox vessels , but can't do anything for small vessels in the foot. pt will end up needing possible Trans metatarsal amputation. Also pt. would need more surgery to right hand finger Anemia, wt. loss, anorexia as reported per patient -GI consulted, input appreciated. Work up started, EGD recommended. -pt. enc. to increase PO, diet given. Remained anorexic -declined EGD -was noted with Hgb 7, S/P 1 unit PRBC, HH stable -low Iron stores -stool OB negative -continue started on Marinol per nephro -put on PPI, Reglan -Nepro supplement was ordered. -Pt. remained with poor appetite ESRD, PD at HS -appreciate nephrology input, orders to continue PD -per renal, pt. not tolerating PD well, pt. did not want HD. -Medications and electrolytes were managed Hypotension initially, which resolved -hydrated cautiously, BP improved, and IVF were discontinued. CHF, chronic -stable, evidence of fluid overload. Hyperlipidemia -continued on statins CAD -continued home medications DM -diabetic diet -Glipizide -accu checks qc & qhs Heparin for DVT prophylaxis PPI for GI prophylaxis Pt's condition remained guarded, pt and family discussed possibly transitioning to hospice. Hospice consulted, they spoke to pt and family. Pt. decided to transition to comfort care. Pt. met hospice criteria and was accepted to go to care center Pt. discharged to care center DNR status requested Pt Condition on Discharge: Guarded Discharge Disposition: Hospice/Med Facility Discharge Instructions DIET: Follow Instructions for: As Tolerated, No Restrictions Activities you can perform: Weight Bearing as Delmi Follow up Referrals: PCP Follow-up Continued Medications: Calcitriol (Calcitriol) 0.5 Mcg Cap 0.5 MCG PO DAILY Calcium Supplement #30 Ref 0 CAP Colchicine (Colchicine) 0.6 Mg Cap 0.6 MG PO DAILY Gout Ref 0 CAP Glipizide (Glipizide) 5 Mg Tab 5 MG PO DAILY Take 30 minutes before a meal Blood Sugar Management #30 Ref 0 TAB Hydrocodone-Acetaminophen (Hydrocodone-Acetaminophen) 10-325 mg Tab 1 TAB PO Q4H PRN PAIN 1-5 #20 TAB Isosorbide Mononitrate ER (Isosorbide Mononitrate ER) 60 Mg Tab 60 MG PO DAILY Prevent Chest Pain #30 Ref 0 TAB Metoclopramide (Metoclopramide) 10 Mg Tab 10 MG PO ACHS Build Immunity #30 Ref 3 TAB Metoprolol Tartrate (Metoprolol Tartrate) 50 Mg Tab 50 MG PO DAILY #30 Ref 0 TAB Nifedipine (Nifedipine) 10 Mg Cap 30 MG PO DAILY Chest Pain #120 Ref 0 CAP Nitroglycerin SL (Nitroglycerin SL) 0.4 Mg Subl 0.4 MG SL DIRECTED ONE TABLET UNDER THE TONGUE NEEDED FOR CHEST PAIN, MAY REPEAT EVERY FIVE MINUTES FOR A TOTAL OF 3 DOSES OR CALL 911 IF NO RELIEF PRN CHEST PAIN #100 Ref 0 TAB.SL Rosuvastatin (Crestor) 20 Mg Tab 20 MG PO DAILY Cholesterol Management #30 Ref 0 TAB Sennosides-Docusate Sodium (Analia-Colace) 8.6-50 Mg Tab 1 TAB PO BID PRN Constipation #60 Ref 0 TAB Sevelamer Carbonate (Renvela) 800 Mg Tab 1600 MG PO TID Control phosphorous levels #180 Ref 0 TAB Zolpidem (Ambien) 5 Mg Tab 5 MG PO HS PRN INSOMNIA Ref 0 TAB Discontinued Medications: Bumetanide (Bumex) 1 Mg Tab 1 MG PO DAILY Ref 0 TAB Multi-Vit/Iron-B Comp-Vit C (Integra) 62.5-62.5-40-3 mg Cap Riri Love Nov 19, 2016 18:22 Glipizide (Glipizide) 5 Mg Tab 5 MG PO DAILY Take 30 minutes before a meal Blood Sugar Management #30 Ref 0 TAB Hydrocodone-Acetaminophen (Hydrocodone-Acetaminophen) 10-325 mg Tab 1 TAB PO Q4H PRN PAIN 1-5 #20 TAB Isosorbide Mononitrate ER (Isosorbide Mononitrate ER) 60 Mg Tab 60 MG PO DAILY Prevent Chest Pain #30 Ref 0 TAB Metoclopramide (Metoclopramide) 10 Mg Tab 10 MG PO ACHS Build Immunity #30 Ref 3 TAB Metoprolol Tartrate (Metoprolol Tartrate) 50 Mg Tab 50 MG PO DAILY #30 Ref 0 TAB Nifedipine (Nifedipine) 10 Mg Cap 30 MG PO DAILY Chest Pain #120 Ref 0 CAP Nitroglycerin SL (Nitroglycerin SL) 0.4 Mg Subl 0.4 MG SL DIRECTED ONE TABLET UNDER THE TONGUE NEEDED FOR CHEST PAIN, MAY REPEAT EVERY FIVE MINUTES FOR A TOTAL OF 3 DOSES OR CALL 911 IF NO RELIEF PRN CHEST PAIN #100 Ref 0 TAB.SL Rosuvastatin (Crestor) 20 Mg Tab 20 MG PO DAILY Cholesterol Management #30 Ref 0 TAB Sennosides-Docusate Sodium (Analia-Colace) 8.6-50 Mg Tab 1 TAB PO BID PRN Constipation #60 Ref 0 TAB Sevelamer Carbonate (Renvela) 800 Mg Tab 1600 MG PO TID Control phosphorous levels #180 Ref 0 TAB Zolpidem (Ambien) 5 Mg Tab 5 MG PO HS PRN INSOMNIA Ref 0 TAB Discontinued Medications: Bumetanide (Bumex) 1 Mg Tab 1 MG PO DAILY Ref 0 TAB Multi-Vit/Iron-B Comp-Vit C (Integra) 62.5-62.5-40-3 mg Riri Smith Nov 19, 2016 18:22
--- NOTE | 2016-11-23 18:46 | MP ---
cc: GABRIELLA MURPHY DATE OF SURGERY 11/18/16 PREOPERATIVE DIAGNOSIS Ischemic necrosis left foot. POSTOPERATIVE DIAGNOSIS Ischemic necrosis left foot. OPERATIVE PROCEDURE 1. Selective left femoral arteriogram. 2. Left popliteal percutaneous balloon angioplasty. SURGEON Anayeli Murphy MD MEDICAL ACCOUNTING CLERK KAROL Garza ANESTHESIA Local MAC DESCRIPTION OF PROCEDURE With the patient in the supine position IV sedation was induced, the lower abdomen and entire left lower extremity were prepped with Betadine and draped in a sterile fashion. Following a protocol time-out, the skin and subcutaneous tissue overlying and surrounding the proposed left common femoral access site was preemptively infiltrated with 0.5% Marcaine with epinephrine. Utilizing ultrasound guidance, the left mid common femoral artery was accessed in an antegrade fashion with an 18 gauge needle. A J-wire was advanced under fluoroscopic guidance into the proximal SFA and a 5-Libyan hemostatic sheath deployed over the J-wire. Left femoral-popliteal tibial angiography was then accomplished by injecting diluted contrast through the sheath side-arm in conjunction with digital C-arm fluoroscopic imaging. This confirmed wide patency of the common, superficial and profunda femoral arteries throughout. The above-knee popliteal exhibited diffuse irregularity extending from the adductor level to the knee joint with focal occlusion immediately proximal to the knee joint level. Analia geniculate collaterals reconstituted a normal-appearing below-knee popliteal. The anterior tibial and peroneal arteries occluded soon after their origins and did not reconstitute. The posterior tibial provided uninterrupted flow to the level of the medial malleolus at which point the artery flush occluded. Only small collaterals extended along the proximal medial plantar arch. The patient was systemically heparinized with 4000 units. An advantage guidewire quick cross catheter combination was negotiated across the left popliteal occlusion and into the proximal posterior tibial artery. Repeat selective angiograms of the posterior tibial reconfirmed occlusion at the medial malleolus with small collaterals but no evidence of reconstitution of the dorsal, plantar arch or tarsal vessels. The left popliteal occlusion was balloon angioplastied with a 4 x 5 mm balloon inflated to 10 atmospheres, two separate inflations two minutes each. Repeat angiogram revealed wide patency of the popliteal with no technical defects and much improved, rapid flow into the posterior tibial and beyond. The 5-Libyan sheath was secured with a skin suture and sterile dressing applied. The patient returned to recovery in stable condition having tolerated procedure well. MD SELINA Syed/ /6:28 PM /6:32 PM
== END 2016-11-19 20:59 | disposition hospice, inpatient (51) | DRG 252 ==
LOC: N07B 15:45 → OBSVTOIN 15:55 → HCIS 11-18 18:47 → HPAC 11-19 01:58 → N07A 11-19 16:00
PROVIDERS: ADMIT Specialist; ATTEND Specialist
PROC: 3E1M39Z Irrigation of Peritoneal Cavity using Dialysate, Percutaneous Approach (ICD-10-PCS; 2016-11-15)
PROC: 30233N1 Transfusion of Nonautologous Red Blood Cells into Peripheral Vein, Percutaneous Approach (ICD-10-PCS; 2016-11-16)
PROC: 047N3ZZ Dilation of Left Popliteal Artery, Percutaneous Approach (ICD-10-PCS; principal; 2016-11-18 16:19)
PROC: B41G1ZZ Fluoroscopy of Left Lower Extremity Arteries using Low Osmolar Contrast (ICD-10-PCS; 2016-11-18 16:19)
DX: I77.89 Other specified disorders of arteries and arterioles (principal); N18.6 End stage renal disease; I13.2 Hypertensive heart and chronic kidney disease with heart failure and with stage 5 chronic kidney disease, or end stage renal disease; I95.9 Hypotension, unspecified; E46 Unspecified protein-calorie malnutrition; E11.52 Type 2 diabetes mellitus with diabetic peripheral angiopathy with gangrene; K31.84 Gastroparesis; I73.89 Other specified peripheral vascular diseases; E11.22 Type 2 diabetes mellitus with diabetic chronic kidney disease; Z79.84 Long term (current) use of oral hypoglycemic drugs; I50.9 Heart failure, unspecified; D63.1 Anemia in chronic kidney disease; Z99.2 Dependence on renal dialysis; X58.XXXA Exposure to other specified factors, initial encounter; S91.102A Unspecified open wound of left great toe without damage to nail, initial encounter; E78.5 Hyperlipidemia, unspecified; G89.29 Other chronic pain; I25.10 Atherosclerotic heart disease of native coronary artery without angina pectoris; Z95.1 Presence of aortocoronary bypass graft; Z89.021 Acquired absence of right finger(s); Z51.5 Encounter for palliative care
CPT/HCPCS: 36430; 75710; 80048; 80053; 80061; 80069; 82272; 82728; 82948; 83540; 83550; 85025; 85027; 85044; 85347; 85610; 86850; 86900; 86901; 86920; 90935; C1725; C1769; J1644; J1815; J2250; J2720; J2765; J3480; J7030; J7050; P9016; Q9967